=== PATIENT | female | born 1940 | race Caucasian/White ===

== ENCOUNTER 2019-06-04 21:21 | Inpatient (IN) | payer MEDICARE, OTHER ==
[~2019-06-04] VITALS: Ht 172.7 cm; Wt 52.8 kg
[~2019-06-04 21:21] MED LIST: DILT360C2 PO; ROSU20TA28 PO; VALS160T27 PO
--- NOTE | 2019-06-04 21:39 | PHYS DOC ---
Past Medical History Past Medical History: COPD, High Cholesterol, Hypertension, Other Additional Past Medical Histor: BILATERAL FEM POP BYPASS,HEART MURMUR Past Surgical History: Appendectomy, Cholecystectomy, Hysterectomy, Other Additional Past Surgical Histo: HEART CATH Alcohol Use: Occasionally Drug Use: None Adult General HPI HPI Patient is a 79 year old female who presents with at a nursing facility the nurse saw blood in this patient's stool but not an actual toilet water. This happened 1 hour ago. Patient states that today she's been having diarrhea at that she hasn't had before. States she's had lower abdominal pain but with palpation only. Patient states that she has no pain, abdominal pain, nausea, vomiting, fevers, recent illness, cough, shortness of air, chest pain, numbness or tingling, dizziness, headache, visual changes, weakness. Review of Systems Review of Systems GI: Denies abdominal pain, nausea, vomiting. +bloody stools or +diarrhea [] All other systems were reviewed and found to be within normal limits, except as documented in this note. Current Medications Current Medications Current Medications Medications (Trade) Dose Ordered Sig/Bryan Start Time Stop Time Status Last Admin Dose Admin Info (CONTRAST GIVEN -- Rx MONITORING) 1 each PRN DAILY PRN 06/04/19 22:00 06/06/19 21:59 Iohexol (Omnipaque 240 Mg/ml) 50 ml 1X ONCE 06/04/19 22:00 06/04/19 22:01 DC Iohexol (Omnipaque 300 Mg/ml) 100 ml 1X ONCE 06/04/19 22:00 06/04/19 22:01 DC Sodium Chloride 1,000 ml @ 1,000 mls/hr 1X ONCE 06/04/19 22:30 06/04/19 23:29 DC 06/04/19 23:23 1,000 MLS/HR Allergies Allergies Allergies Coded Allergies Type Severity Reaction Last Updated Verified No Known Drug Allergies 11/12/18 No Physical Exam Physical Exam Constitutional: Well developed, well nourished, no acute distress, non-toxic appearance. [] HENT: Normocephalic, atraumatic, bilateral external ears normal, oropharynx moist, no oral exudates, nose normal. [] Eyes: PERRLA, EOMI, conjunctiva normal, no discharge. [] Neck: Normal range of motion, no tenderness, supple, no stridor. [] Cardiovascular:Heart rate regular rhythm, no murmur [] Lungs & Thorax: Bilateral breath sounds clear to auscultation [] Abdomen: Bowel sounds normal, soft, Low Mid and LLQ tenderness, no masses, no pulsatile masses. Outer hemorrhoids around rectum seen that are not thrombosed and not draining or bleeding.[] Skin: Warm, dry, no erythema, no rash. [] Back: No tenderness, no CVA tenderness. [] Extremities: No tenderness, no cyanosis, no clubbing, ROM intact, no edema. [] Neurologic: Alert and oriented X 3, normal motor function, normal sensory function, no focal deficits noted. [] Psychologic: Affect normal, judgement normal, mood normal. [] Current Patient Data Vital Signs Vital Signs Date Time Temp Pulse Resp B/P (MAP) Pulse Ox O2 Delivery O2 Flow Rate FiO2 06/04/19 21:21 97.5 87 18 143/53 (83) 94 Nasal Cannula 2.0 97.5 Lab Values Laboratory Tests Test 06/04/19 21:34 06/04/19 22:17 Stool Occult Blood Positive (NEG) White Blood Count 7.8 x10^3/uL (4.0-11.0) Red Blood Count 2.56 x10^6/uL (3.50-5.40) L Hemoglobin 8.1 g/dL (12.0-15.5) L Hematocrit 24.4 % (36.0-47.0) L Mean Corpuscular Volume 95 fL (79-100) Mean Corpuscular Hemoglobin 32 pg (25-35) Mean Corpuscular Hemoglobin Concent 33 g/dL (31-37) Red Cell Distribution Width 15.0 % (11.5-14.5) H Platelet Count 357 x10^3/uL (140-400) Neutrophils (%) (Auto) 85 % (31-73) H Lymphocytes (%) (Auto) 7 % (24-48) L Monocytes (%) (Auto) 6 % (0-9) Eosinophils (%) (Auto) 1 % (0-3) Basophils (%) (Auto) 1 % (0-3) Neutrophils # (Auto) 6.7 x10^3/uL (1.8-7.7) Lymphocytes # (Auto) 0.6 x10^3/uL (1.0-4.8) L Monocytes # (Auto) 0.5 x10^3/uL (0.0-1.1) Eosinophils # (Auto) 0.1 x10^3/uL (0.0-0.7) Basophils # (Auto) 0.1 x10^3/uL (0.0-0.2) Segmented Neutrophils % 92 % (35-66) H Band Neutrophils % 1 % (0-9) Lymphocytes % 4 % (24-48) L Monocytes % 3 % (0-10) Platelet Estimate Adequate (ADEQUATE) Hypochromasia Mod Anisocytosis Slight Prothrombin Time 14.5 SEC (11.7-14.0) H Prothrombin Time INR 1.2 (0.8-1.1) H Sodium Level 137 mmol/L (136-145) Potassium Level 4.5 mmol/L (3.5-5.1) Chloride Level 103 mmol/L (98-107) Carbon Dioxide Level 29 mmol/L (21-32) Anion Gap 5 (6-14) L Blood Urea Nitrogen 40 mg/dL (7-20) H Creatinine 1.3 mg/dL (0.6-1.0) H Estimated GFR (Cockcroft-Gault) 39.5 BUN/Creatinine Ratio 31 (6-20) H Glucose Level 116 mg/dL (70-99) H Calcium Level 9.3 mg/dL (8.5-10.1) Total Bilirubin 0.2 mg/dL (0.2-1.0) Aspartate Amino Transferase (AST) 22 U/L (15-37) Alanine Aminotransferase (ALT) 12 U/L (14-59) L Alkaline Phosphatase 97 U/L (46-116) Troponin I Quantitative 0.042 ng/mL (0.000-0.055) Total Protein 6.8 g/dL (6.4-8.2) Albumin 2.9 g/dL (3.4-5.0) L Albumin/Globulin Ratio 0.7 (1.0-1.7) L Laboratory Tests 06/04/19 22:17 Laboratory Tests 06/04/19 22:17 EKG EKG Sinus Rhythm and no STEMI Interpretation Time: [address] Radiology/Procedures Radiology/Procedures [] Impressions: [facility] [address] [place] [address] IMAGING REPORT Signed PATIENT: MIRELLA SAAB ACCOUNT: [id number] : 1940 LOCATION: ER AGE: 79 SEX: F EXAM STATUS: REG ER ORD. PHYSICIAN: BOAZ BARAKAT APRN REASON: coarse breath sounds PROCEDURE: PORTABLE CHEST 1V Exam: Chest one view INDICATION: Coarse breath sounds TECHNIQUE: Frontal view of the chest Comparisons: 11/12/2018 FINDINGS: The cardiomediastinal silhouette and pulmonary vessels are within normal limits. There is a small left pleural effusion with mild adjacent airspace disease. IMPRESSION: Small left pleural effusion with adjacent airspace disease, likely atelectasis. Superimposed infectious process is difficult to exclude. Electronically signed by: Olive Viera MD (06/04/2019 10:09 PM) [facility] DICTATED and SIGNED BY: OLIVE VIERA MD DATE: 06/04/192208 [facility] [address] [place] [address] IMAGING REPORT Signed PATIENT: MIRELLA SAAB ACCOUNT: [id number] : 1940 LOCATION: ER AGE: 79 SEX: F EXAM STATUS: REG ER ORD. PHYSICIAN: BOAZ BARAKAT APRN REASON: rectal bleeding; ; lower abd pain x tonight hx: diverticulitis PROCEDURE: CT ABD PELV W/ORAL&IV CONTRAST EXAM: CT Abdomen and Pelvis without IV contrast CLINICAL HISTORY: Rectal bleeding, diverticulitis. COMPARISON: none TECHNIQUE: Helical CT of the abdomen and pelvis without intravenous contrast. Axial, coronal and sagittal reformatted images were generated. PQRS compliance statement - One or more of the following individualized dose reduction techniques were utilized for this study: 1. Automated exposure control 2. Adjustment of the mA and/or kV according to patient size 3. Use of iterative reconstruction technique FINDINGS: Lack of intravenous contrast limits evaluation of solid organs, vasculature, and lymph nodes. Lower chest: Small left pleural effusion. Dependent opacities left lower lobe and lingula likely atelectasis. Mild emphysematous changes are seen with bronchiectasis. Coronary artery calcifications are seen. Abdomen and Pelvis: Subcentimeter hypodense right hepatic lobe lesion is too small to accurately characterize. Cholecystectomy clips are seen. No biliary duct dilatation. Pancreas is borderline atrophic but otherwise unremarkable. Spleen is normal in appearance. Adrenal glands are unremarkable. Left kidney is atrophic. Subcentimeter hypodense left renal lesions are too small to accurately characterize. No renal tract calculus. Bladder is unremarkable. Changes of aortobiiliac stent graft are seen. Abdominal aortic aneurysm is seen within the aneurysm sac measuring 3.4 x 3.9 cm. Moderate colonic stool content is seen. No bowel obstruction. Extensive colonic diverticulosis is seen with flocculated barium within the diverticula resulting in associated streak artifact, limiting evaluation. Within these constraints no CT evidence for acute diverticulitis. Mild eccentric thickening of the rectal wall. No abdominal or pelvic lymphadenopathy. No abdominal or pelvic ascites. A few mildly prominent abdominal and pelvic retroperitoneal and mesenteric lymph nodes are seen, not enlarged by size criteria. No abdominal or pelvic ascites. Bones: Marked osteopenia. L3 and L4 compression fractures, age indeterminate. IMPRESSION: 1. Mild eccentric thickening of the rectal wall. Correlated with clinical examination and colonoscopy if not recently performed. 2. Extensive colonic diverticulosis without CT evidence for acute diverticulitis, although evaluation is limited given flocculated barium. 3. Marked osteopenia. L3 and L4 compression fractures are age indeterminate. 4. Abdominal aortic aneurysm with aortobiiliac stent graft, measures 3.4 x 3.9 cm. No evidence for rupture. 5. Small left pleural effusion with associated dependent opacities, likely atelectasis. Electronically signed by: Talha Ravi MD (06/04/2019 11:41 PM) [facility] DICTATED and SIGNED BY: TALHA RAVI MD DATE: 06/04/19 2612 Course & Med Decision Making Course & Med Decision Making Abdomen is soft but there is some tenderness to low mid and left abdomen. No extremity edema. Lungs are coarse in bilateral upper lobes but diminished in lower lobes. Patient wears 2 L of oxygen at all times. She does have COPD. She states she does not feel any more shortness of air than usual. She denies any fevers or coughing up any mucus. Patient was at [facility] [place] 2 weeks ago for the GI bleed. Family did not want to go back down there because he stated it was too far and [place] was closer to home. Patient is on Cymbalta, albuterol, aspirin 81 mg, digitize exam. She does have a history of COPD, hypertension, diverticulosis, CAD, high cholesterol, heart bypass. Skin is pale but warm and dry. PERRLA. Alert and oriented. Speaks in full clear sentences. Follows all commands appropriately. Hemoglobin is 8.1 and the only blood work we have is from November 2018 and her hemoglobin was 12 at that time. In November 2018 patient's BUN was 19 and now it is 40, creatinine pain was 1.0 and now it is 1.3. It is unclear what her blood work was from [facility] 2 weeks ago when she was in the hospital for a GI bleed. I have gone over this patient findings and plan of care with Dr Friend. Patient is admitted to Dr Johnston. CT ABD PELV shows IMPRESSION: 1. Mild eccentric thickening of the rectal wall. Correlated with clinical examination and colonoscopy if not recently performed. 2. Extensive colonic diverticulosis without CT evidence for acute diverticulitis, although evaluation is limited given flocculated barium. 3. Marked osteopenia. L3 and L4 compression fractures are age indeterminate. 4. Abdominal aortic aneurysm with aortobiiliac stent graft, measures 3.4 x 3.9 cm. No evidence for rupture. 5. Small left pleural effusion with associated dependent opacities, likely atelectasis. Rectal Exam: Normal tone, No mass, Positive control Stool: Brown Guaiac: Positive Dragon Disclaimer Dragon Disclaimer This electronic medical record was generated, in whole or in part, using a voice recognition dictation system. Departure Departure Impression: Primary Impression: Rectal bleeding Additional Impression: Acute kidney injury Disposition: ADMITTED INPATIENT Admitting Physician: HIMS Condition: STABLE Referrals: NO PCP (PCP) Problem Qualifiers BOAZ BARAKAT DOCK OPERATOR Jun 04, 2019 21:39
[2019-06-04 21:50] LABS: FECAL OB PT POSITIVE (NEG)
[2019-06-04] MEDS ORDERED: CONTRAST GIVEN. MC PRN (22:00)
[2019-06-04] MEDS ORDERED: IOHEXOL 300 MG/ML 100ML VIAL. IV ONE (22:00)
[2019-06-04] MEDS ORDERED: IOHEXOL 240 MG/ML 50ML VIAL. PO ONE (22:00)
--- NOTE | 2019-06-04 22:12 | RAD ---
Exam: Chest one view INDICATION: Coarse breath sounds TECHNIQUE: Frontal view of the chest Comparisons: 11/12/2018 FINDINGS: The cardiomediastinal silhouette and pulmonary vessels are within normal limits. There is a small left pleural effusion with mild adjacent airspace disease. IMPRESSION: Small left pleural effusion with adjacent airspace disease, likely atelectasis. Superimposed infectious process is difficult to exclude. Electronically signed by: Olive Segura MD (06/04/2019 10:09 PM) [facility]
[2019-06-04 22:24] LABS: BASO # 0.1 x10^3/uL (0.0-0.2); BASO % 1 % (0-3); EOS # 0.1 x10^3/uL (0.0-0.7); EOS % 1 % (0-3); HEMATOCRIT 24.4 % (36.0-47.0); HEMOGLOBIN 8.1 g/dL (12.0-15.5); LYMPH # 0.6 x10^3/uL (1.0-4.8); LYMPH % 7 % (24-48); MEAN CORPUSCULAR HEMOGLOBIN 32 pg (25-35); MEAN CORPUSCULAR HGB CONC 33 g/dL (31-37); MEAN CORPUSCULAR VOLUME 95 fL (79-100); MONO # 0.5 x10^3/uL (0.0-1.1); MONO % 6 % (0-9); NEUT # 6.7 x10^3/uL (1.8-7.7); NEUT % 85 % (31-73); PLATELET COUNT 357 x10^3/uL (140-400); RED BLOOD COUNT 2.56 x10^6/uL (3.50-5.40); WHITE BLOOD COUNT 7.8 x10^3/uL (4.0-11.0)
[2019-06-04] MEDS ORDERED: IV NORMAL SALINE 1000ML BAG 1,000 ML IV ONE (22:30)
[2019-06-04 22:32] LABS: PROTHROMBIN TIME PATIENT 14.5 SEC (11.7-14.0)
[2019-06-04 22:38] LABS: CALCIUM 9.3 mg/dL (8.5-10.1); CREATININE 1.3 mg/dL (0.6-1.0); GFR 39.5; POTASSIUM 4.5 mmol/L (3.5-5.1)
[2019-06-04 22:43] LABS: ALBUMIN 2.9 g/dL (3.4-5.0); ALBUMIN/GLOBULIN RATIO 0.7 (1.0-1.7); TOTAL BILIRUBIN 0.2 mg/dL (0.2-1.0); TOTAL PROTEIN 6.8 g/dL (6.4-8.2)
[2019-06-04 22:46] LABS: % BANDS 1 % (0-9); % LYMPHS 4 % (24-48); % MONOS 3 % (0-10); % SEGS 92 % (35-66)
[2019-06-04 22:47] LABS: ANISOCYTOSIS SLIGHT; HYPOCHROMIA MOD; PLT ESTIMATE ADEQUATE (ADEQUATE)
--- NOTE | 2019-06-04 23:44 | RAD ---
EXAM: CT Abdomen and Pelvis without IV contrast CLINICAL HISTORY: Rectal bleeding, diverticulitis. COMPARISON: none TECHNIQUE: Helical CT of the abdomen and pelvis without intravenous contrast. Axial, coronal and sagittal reformatted images were generated. PQRS compliance statement - One or more of the following individualized dose reduction techniques were utilized for this study: 1. Automated exposure control 2. Adjustment of the mA and/or kV according to patient size 3. Use of iterative reconstruction technique FINDINGS: Lack of intravenous contrast limits evaluation of solid organs, vasculature, and lymph nodes. Lower chest: Small left pleural effusion. Dependent opacities left lower lobe and lingula likely atelectasis. Mild emphysematous changes are seen with bronchiectasis. Coronary artery calcifications are seen. Abdomen and Pelvis: Subcentimeter hypodense right hepatic lobe lesion is too small to accurately characterize. Cholecystectomy clips are seen. No biliary duct dilatation. Pancreas is borderline atrophic but otherwise unremarkable. Spleen is normal in appearance. Adrenal glands are unremarkable. Left kidney is atrophic. Subcentimeter hypodense left renal lesions are too small to accurately characterize. No renal tract calculus. Bladder is unremarkable. Changes of aortobiiliac stent graft are seen. Abdominal aortic aneurysm is seen within the aneurysm sac measuring 3.4 x 3.9 cm. Moderate colonic stool content is seen. No bowel obstruction. Extensive colonic diverticulosis is seen with flocculated barium within the diverticula resulting in associated streak artifact, limiting evaluation. Within these constraints no CT evidence for acute diverticulitis. Mild eccentric thickening of the rectal wall. No abdominal or pelvic lymphadenopathy. No abdominal or pelvic ascites. A few mildly prominent abdominal and pelvic retroperitoneal and mesenteric lymph nodes are seen, not enlarged by size criteria. No abdominal or pelvic ascites. Bones: Marked osteopenia. L3 and L4 compression fractures, age indeterminate. IMPRESSION: 1. Mild eccentric thickening of the rectal wall. Correlated with clinical examination and colonoscopy if not recently performed. 2. Extensive colonic diverticulosis without CT evidence for acute diverticulitis, although evaluation is limited given flocculated barium. 3. Marked osteopenia. L3 and L4 compression fractures are age indeterminate. 4. Abdominal aortic aneurysm with aortobiiliac stent graft, measures 3.4 x 3.9 cm. No evidence for rupture. 5. Small left pleural effusion with associated dependent opacities, likely atelectasis. Electronically signed by: Talha Tafoya MD (06/04/2019 11:41 PM) [facility]
[2019-06-05] VITALS (15 sets, daily range): BP systolic 96–153; BP diastolic 46–71
[2019-06-05] MEDS ORDERED: IV NORMAL SALINE 1000ML BAG 1,000 ML IV ONE (00:15)
[2019-06-05] MEDS ORDERED: fentaNYL PF VIAL 100 MCG/2 ML VIAL IV PRN (00:15)
[2019-06-05] MEDS ORDERED: ONDANSETRON PF 4 MG/2 ML VIAL. IV PRN ×2 (00:15→07:30)
[2019-06-05] MEDS ORDERED: DULO20CA PO (05:37)
[2019-06-05] MEDS ORDERED: ACETAMINOPHEN 325 MG TABLET. PO PRN (07:30)
--- NOTE | 2019-06-05 07:42 | PDOC1 ---
History and Physical Date of Admission Date of Admission DATE: 06/05/19 TIME: 07:30 Identification/Chief Complaint Chief Complaint Blood in stool Source Source: Patient History of Present Illness History of Present Illness Ms Sanz is a 79yo F w/ PMHx COPD, High Cholesterol, Hypertension, AAA, PAD s/p fem pop bypass, aortic stenosis, pulmonary hypertension who presents from nursing facility where nurse saw blood in patient's stool 1 hour prior to ED presentation. Patient states that today she's been having diarrhea. No abdominal pain, nausea, vomiting, fevers, recent illness, cough, shortness of air, chest pain, numbness or tingling, dizziness, headache, visual changes, weakness. She is UTD on vaccines. Her only pain is upon abdominal palpation. Labs: Hb 8.1 (was 12.2 recently), Na 137, K 4.5, BUN 40, Cr 1.3, Albumin 2.9, INR 1.2, Troponin 0.042, Occult blood positive Past Medical History Cardiovascular: Other Pulmonary: No pertinent hx Heme/Onc: No pertinent hx Renal/: No pertinent hx Endocrine: No pertinent hx Social History ALCOHOL: none Drugs: None Current Problem List Problem List Problems Medical Problems: (1) Acute kidney injury Status: Acute (2) Rectal bleeding Status: Acute Current Medications Current Medications Current Medications Iohexol (Omnipaque 300 Mg/ml) 100 ml 1X ONCE IV ; Start 06/04/19 at 22:00; Stop 06/04/19 at 22:01; Status DC Iohexol (Omnipaque 240 Mg/ml) 50 ml 1X ONCE PO Last administered on 06/04/19at 23:05; Start 06/04/19 at 22:00; Stop 06/04/19 at 22:01; Status DC Info (CONTRAST GIVEN -- Rx MONITORING) 1 each PRN DAILY PRN MC SEE COMMENTS; Start 06/04/19 at 22:00; Stop 06/06/19 at 21:59 Sodium Chloride 1,000 ml @ 1,000 mls/hr 1X ONCE IV Last administered on 06/04/19at 23:23; Start 06/04/19 at 22:30; Stop 06/04/19 at 23:29; Status DC Ondansetron HCl (Zofran) 4 mg PRN Q8HRS PRN IV NAUSEA/VOMITING; Start 06/05/19 at 00:15; Stop 06/06/19 at 00:14 Fentanyl Citrate (Fentanyl 2ml Vial) 50 mcg PRN Q1HR PRN IV PAIN; Start 06/05/19 at 00:15; Stop 06/06/19 at 00:14 Sodium Chloride 1,000 ml @ 100 mls/hr 1X ONCE IV Last administered on 06/05/19at 00:15; Start 06/05/19 at 00:15; Stop 06/05/19 at 10:14 Active Scripts Active Reported Cymbalta (Duloxetine Hcl) 20 Mg Capsule.dr 40 Mg PO DAILY Rosuvastatin Calcium 20 Mg Tablet 20 Mg PO DAILY Valsartan 160 Mg Tablet 160 Mg PO DAILY Diltiazem Xt (Diltiazem Hcl) 360 Mg Capsule.er 360 Mg PO DAILY Allergies Allergies: Coded Allergies: No Known Drug Allergies (Unverified , 11/12/18) ROS General: YES: Fatigue, Malaise; No: Chills, Night Sweats, Appetite, Other PSYCHOLOGICAL ROS: YES: Disorientation; No: Anxiety, Behavioral Disorder, Concentration difficultie, Decreased libido, Depression, Hallucinations, Hostility, Irritablity, Memory difficulties, Mood Swings, Obsessive thoughts, Physical abuse, Sexual abuse, Sleep disturbances, Suicidal ideation, Other Eyes: No Blurry vision, No Decreased vision, No Double vision, No Dry eyes, No Excessive tearing, No Eye Pain, No Itchy Eyes, No Loss of vision, No Photophobia, No Scotomata, No Uses contacts, No Uses glasses, No Other HEENT: No: Heacaches, Visual Changes, Hearing change, Nasal congestion, Nasal discharge, Oral lesions, Sinus pain, Sore Throat, Epistaxis, Sneezing, Snoring, Tinnitus, Vertigo, Vocal changes, Other ALLERGY AND IMMUNOLOGY: No: Hives, Insect Bite Sensitivity, Itchy/Watery Eyes, Nasal Congestion, Post Nasal Drip, Seasonal Allergies, Other Hematological and Lymphatic: No: Bleeding Problems, Blood Clots, Blood Transfusions, Brusing, Night Sweats, Pallor, Swollen Lymph Nodes, Other ENDOCRINE: No: Breast Changes, Galactorrhea, Hair Pattern Changes, Hot Flashes, Malaise/lethargy, Mood Swings, Palpitations, Polydipsia/polyuria, Skin Changes, Temperature Intolerance, Unexpected Weight Changes, Other Breast: No New/Changing Breast Lumps, No Nipple changes, No Nipple discharge, No Other Respiratory: No: Cough, Hemoptysis, Orthopnea, Pleuritic Pain, Shortness of breath, SOB with excertion, Sputum Changes, Stridor, Tachypnea, Wheezing, Other Cardiovascular: No Chest Pain, No Palpitations, No Orthopnea, No Paroxysmal Noc. Dyspnea, No Edema, No Lt Headedness, No Other Gastrointestinal: Yes Abdominal Pain, Yes Diarrhea; No Nausea, No Vomiting, No Constipation, No Melena, No Hematochezia, No Other Genitourinary: No Dysuria, No Frequency, No Incontinence, No Hematuria, No Retention, No Discharge, No Urgency, No Pain, No Flank Pain, No Other, No , No , No , No , No , No , No Musculoskeletal: No Gait Disturbance, No Joint Pain, No Joint Stiffness, No Joint Swelling, No Muscle Pain, No Muscular Weakness, No Pain In:, No Swelling In:, No Other Neurological: No Behavorial Changes, No Bowel/Bladder ControlChng, No Confusion, No Dizziness, No Gait Disturbance, No Headaches, No Impaired Coord/balance, No Memory Loss, No Numbness/Tingling, No Seizures, No Speech Problems, No Tremors, No Visual Changes, No Weakness, No Other Skin: No Dry Skin, No Eczema, No Hair Changes, No Lumps, No Mole Changes, No Mottling, No Nail Changes, No Pruritus, No Rash, No Skin Lesion Changes, No Other, No Acne Physical Exam General: Alert, Cooperative, No acute distress HEENT: Atraumatic, PERRLA, EOMI, Mucous membr. moist/pink Lungs: Clear to auscultation, Normal air movement Heart: S1S2, RRR, no thrills, murmurs (3/6 MARY) Abdomen: Normal bowel sounds, Soft, No hepatosplenomegaly, No masses, Other (RLQ tender) Extremities: No clubbing, No cyanosis, No edema, Normal pulses, No tenderness/swelling Skin: No rashes, No breakdown, No significant lesion Neuro: Normal speech, Strength at 5/5 X4 ext, Normal tone, Sensation intact, Cranial nerves 3-12 NL, Reflexes 2+ Psych/Mental Status: Mental status NL, Mood NL Vitals Vitals Vital Signs Date Time Temp Pulse Resp B/P (MAP) Pulse Ox O2 Delivery O2 Flow Rate FiO2 06/05/19 03:35 16 Nasal Cannula 2.0 06/05/19 01:55 98.0 102 153/68 (96) 93 98.0 Labs Labs Laboratory Tests Test 06/04/19 21:34 06/04/19 22:17 Stool Occult Blood Positive (NEG) White Blood Count 7.8 x10^3/uL (4.0-11.0) Red Blood Count 2.56 x10^6/uL (3.50-5.40) Hemoglobin 8.1 g/dL (12.0-15.5) Hematocrit 24.4 % (36.0-47.0) Mean Corpuscular Volume 95 fL (79-100) Mean Corpuscular Hemoglobin 32 pg (25-35) Mean Corpuscular Hemoglobin Concent 33 g/dL (31-37) Red Cell Distribution Width 15.0 % (11.5-14.5) Platelet Count 357 x10^3/uL (140-400) Neutrophils (%) (Auto) 85 % (31-73) Lymphocytes (%) (Auto) 7 % (24-48) Monocytes (%) (Auto) 6 % (0-9) Eosinophils (%) (Auto) 1 % (0-3) Basophils (%) (Auto) 1 % (0-3) Neutrophils # (Auto) 6.7 x10^3/uL (1.8-7.7) Lymphocytes # (Auto) 0.6 x10^3/uL (1.0-4.8) Monocytes # (Auto) 0.5 x10^3/uL (0.0-1.1) Eosinophils # (Auto) 0.1 x10^3/uL (0.0-0.7) Basophils # (Auto) 0.1 x10^3/uL (0.0-0.2) Segmented Neutrophils % 92 % (35-66) Band Neutrophils % 1 % (0-9) Lymphocytes % 4 % (24-48) Monocytes % 3 % (0-10) Platelet Estimate Adequate (ADEQUATE) Hypochromasia Mod Anisocytosis Slight Prothrombin Time 14.5 SEC (11.7-14.0) Prothromb Time International Ratio 1.2 (0.8-1.1) Sodium Level 137 mmol/L (136-145) Potassium Level 4.5 mmol/L (3.5-5.1) Chloride Level 103 mmol/L (98-107) Carbon Dioxide Level 29 mmol/L (21-32) Anion Gap 5 (6-14) Blood Urea Nitrogen 40 mg/dL (7-20) Creatinine 1.3 mg/dL (0.6-1.0) Estimated GFR (Cockcroft-Gault) 39.5 BUN/Creatinine Ratio 31 (6-20) Glucose Level 116 mg/dL (70-99) Calcium Level 9.3 mg/dL (8.5-10.1) Total Bilirubin 0.2 mg/dL (0.2-1.0) Aspartate Amino Transf (AST/SGOT) 22 U/L (15-37) Alanine Aminotransferase (ALT/SGPT) 12 U/L (14-59) Alkaline Phosphatase 97 U/L (46-116) Troponin I Quantitative 0.042 ng/mL (0.000-0.055) Total Protein 6.8 g/dL (6.4-8.2) Albumin 2.9 g/dL (3.4-5.0) Albumin/Globulin Ratio 0.7 (1.0-1.7) Laboratory Tests Test 06/04/19 21:34 06/04/19 22:17 Stool Occult Blood Positive (NEG) White Blood Count 7.8 x10^3/uL (4.0-11.0) Red Blood Count 2.56 x10^6/uL (3.50-5.40) Hemoglobin 8.1 g/dL (12.0-15.5) Hematocrit 24.4 % (36.0-47.0) Mean Corpuscular Volume 95 fL (79-100) Mean Corpuscular Hemoglobin 32 pg (25-35) Mean Corpuscular Hemoglobin Concent 33 g/dL (31-37) Red Cell Distribution Width 15.0 % (11.5-14.5) Platelet Count 357 x10^3/uL (140-400) Neutrophils (%) (Auto) 85 % (31-73) Lymphocytes (%) (Auto) 7 % (24-48) Monocytes (%) (Auto) 6 % (0-9) Eosinophils (%) (Auto) 1 % (0-3) Basophils (%) (Auto) 1 % (0-3) Neutrophils # (Auto) 6.7 x10^3/uL (1.8-7.7) Lymphocytes # (Auto) 0.6 x10^3/uL (1.0-4.8) Monocytes # (Auto) 0.5 x10^3/uL (0.0-1.1) Eosinophils # (Auto) 0.1 x10^3/uL (0.0-0.7) Basophils # (Auto) 0.1 x10^3/uL (0.0-0.2) Segmented Neutrophils % 92 % (35-66) Band Neutrophils % 1 % (0-9) Lymphocytes % 4 % (24-48) Monocytes % 3 % (0-10) Platelet Estimate Adequate (ADEQUATE) Hypochromasia Mod Anisocytosis Slight Prothrombin Time 14.5 SEC (11.7-14.0) Prothromb Time International Ratio 1.2 (0.8-1.1) Sodium Level 137 mmol/L (136-145) Potassium Level 4.5 mmol/L (3.5-5.1) Chloride Level 103 mmol/L (98-107) Carbon Dioxide Level 29 mmol/L (21-32) Anion Gap 5 (6-14) Blood Urea Nitrogen 40 mg/dL (7-20) Creatinine 1.3 mg/dL (0.6-1.0) Estimated GFR (Cockcroft-Gault) 39.5 BUN/Creatinine Ratio 31 (6-20) Glucose Level 116 mg/dL (70-99) Calcium Level 9.3 mg/dL (8.5-10.1) Total Bilirubin 0.2 mg/dL (0.2-1.0) Aspartate Amino Transf (AST/SGOT) 22 U/L (15-37) Alanine Aminotransferase (ALT/SGPT) 12 U/L (14-59) Alkaline Phosphatase 97 U/L (46-116) Troponin I Quantitative 0.042 ng/mL (0.000-0.055) Total Protein 6.8 g/dL (6.4-8.2) Albumin 2.9 g/dL (3.4-5.0) Albumin/Globulin Ratio 0.7 (1.0-1.7) Images Images Lower chest: Small left pleural effusion. Dependent opacities left lower lobe and lingula likely atelectasis. Mild emphysematous changes are seen with bronchiectasis. Coronary artery calcifications are seen. Abdomen and Pelvis: Subcentimeter hypodense right hepatic lobe lesion is too small to accurately characterize. Cholecystectomy clips are seen. No biliary duct dilatation. Pancreas is borderline atrophic but otherwise unremarkable. Spleen is normal in appearance. Adrenal glands are unremarkable. Left kidney is atrophic. Subcentimeter hypodense left renal lesions are too small to accurately characterize. No renal tract calculus. Bladder is unremarkable. Changes of aortobiiliac stent graft are seen. Abdominal aortic aneurysm is seen within the aneurysm sac measuring 3.4 x 3.9 cm. Moderate colonic stool content is seen. No bowel obstruction. Extensive colonic diverticulosis is seen with flocculated barium within the diverticula resulting in associated streak artifact, limiting evaluation. Within these constraints no CT evidence for acute diverticulitis. Mild eccentric thickening of the rectal wall. No abdominal or pelvic lymphadenopathy. No abdominal or pelvic ascites. A few mildly prominent abdominal and pelvic retroperitoneal and mesenteric lymph nodes are seen, not enlarged by size criteria. No abdominal or pelvic ascites. Bones: Marked osteopenia. L3 and L4 compression fractures, age indeterminate. IMPRESSION: 1. Mild eccentric thickening of the rectal wall. Correlated with clinical examination and colonoscopy if not recently performed. 2. Extensive colonic diverticulosis without CT evidence for acute diverticulitis, although evaluation is limited given flocculated barium. 3. Marked osteopenia. L3 and L4 compression fractures are age indeterminate. 4. Abdominal aortic aneurysm with aortobiiliac stent graft, measures 3.4 x 3.9 cm. No evidence for rupture. 5. Small left pleural effusion with associated dependent opacities, likely atelectasis. VTE Prophylaxis Ordered VTE Prophylaxis Devices: Yes VTE Pharmacological Prophylaxi: Contraindicated Assessment/Plan Assessment/Plan A/P: Acute blood loss anemia - telemetry, type and screen. Consult GI. Transfuse for active bleeding if Hb < 7. Blood in stool - likely diverticular, however her dark blood in stool and elevated BUN raise concern for UGIB. D/w GI for tagged RBC scan today CHF, acute diastolic - likely 2/2 blood loss Aortic stenosis COPD - currently stable SIRS - due to blood loss, no clear sign of infection High Cholesterol - cont statin Hypertension - will watch BP closely, hold ARB for HOME HOME - vasomotor nephropathy from volume depletion. Will hold ARB, hydrate AAA and PAD s/p fem pop bypass Pulmonary hypertension - with apparent cor pulmonale, on O2 currently Weakness and debility, PT and OT Underweight, BMI 15 Severe protein calorie malnutrition - consult nutrition, add supplements, cognitive decline, MILD FEN - Cardiac diet PPX - SCDs/PPI FULL CODE Dispo - inpatient for active GI bleeding likely 2 midnights SAMY GAFFNEY MD Jun 05, 2019 07:42
[2019-06-05 09:52] LABS: CALCIUM 8.2 mg/dL (8.5-10.1); CREATININE 0.9 mg/dL (0.6-1.0); GFR 60.4; POTASSIUM 4.4 mmol/L (3.5-5.1)
[2019-06-05 09:54] LABS: BASO # 0.1 x10^3/uL (0.0-0.2); BASO % 1 % (0-3); EOS # 0.1 x10^3/uL (0.0-0.7); EOS % 1 % (0-3); LYMPH # 0.8 x10^3/uL (1.0-4.8); LYMPH % 17 % (24-48); MEAN CORPUSCULAR HEMOGLOBIN 31 pg (25-35); MEAN CORPUSCULAR HGB CONC 33 g/dL (31-37); MEAN CORPUSCULAR VOLUME 94 fL (79-100); MONO # 0.4 x10^3/uL (0.0-1.1); MONO % 9 % (0-9); NEUT # 3.5 x10^3/uL (1.8-7.7); NEUT % 72 % (31-73); PLATELET COUNT 316 x10^3/uL (140-400); RED BLOOD COUNT 2.17 x10^6/uL (3.50-5.40); WHITE BLOOD COUNT 4.9 x10^3/uL (4.0-11.0)
[2019-06-05] MEDS: DULoxetine HCL 20 MG CAPSULE.DR PO SCH (10:11)
[2019-06-05 10:24] LABS: HEMOGLOBIN 6.6 g/dL (12.0-15.5)
[2019-06-05 10:25] LABS: HEMATOCRIT 20.4 % (36.0-47.0)
--- NOTE | 2019-06-05 11:27 | PDOC2 ---
CONSULT Date of Consult Date of Consult DATE: 06/05/19 TIME: 11:27 Reason for Consult Reason for Consult: HOME Source Source: Chart review, Patient History of Present Illness Reason for Visit: Pt is a is a 79yo CF w/ PMHx COPD Hypertension, AAA, PAD s/p fem pop bypass, aortic stenosis, pulmonary hypertension who presents from nursing facility where nurse saw blood in patient's stool 1 hour prior to ED presentation. Patient states that today she's been having diarrhea at that she hasn't had before. States she's had lower abdominal pain but with palpation only. No nausea, vomiting, fevers, recent illness, cough, shortness of air, chest pain, dizziness,. Denies any urinary complaints, good uop. No use of NSAID's Past Medical History Cardiovascular: Other Pulmonary: No pertinent hx Heme/Onc: No pertinent hx Renal/: No pertinent hx Endocrine: No pertinent hx Family History Family History Non contributory Social History ALCOHOL: none Drugs: None Current Problem List Problem List Problems Medical Problems: (1) Acute kidney injury Status: Acute (2) Rectal bleeding Status: Acute Current Medications Current Medications Current Medications Iohexol (Omnipaque 300 Mg/ml) 100 ml 1X ONCE IV ; Start 06/04/19 at 22:00; Stop 06/04/19 at 22:01; Status DC Iohexol (Omnipaque 240 Mg/ml) 50 ml 1X ONCE PO Last administered on 06/04/19at 23:05; Start 06/04/19 at 22:00; Stop 06/04/19 at 22:01; Status DC Info (CONTRAST GIVEN -- Rx MONITORING) 1 each PRN DAILY PRN MC SEE COMMENTS; S tart 06/04/19 at 22:00; Stop 06/06/19 at 21:59 Sodium Chloride 1,000 ml @ 1,000 mls/hr 1X ONCE IV Last administered on 06/04/19at 23:23; Start 06/04/19 at 22:30; Stop 06/04/19 at 23:29; Status DC Ondansetron HCl (Zofran) 4 mg PRN Q8HRS PRN IV NAUSEA/VOMITING; Start 06/05/19 at 00:15; Stop 06/05/19 at 07:30; Status DC Fentanyl Citrate (Fentanyl 2ml Vial) 50 mcg PRN Q1HR PRN IV PAIN; Start 06/05/19 at 00:15; Stop 06/06/19 at 00:14 Sodium Chloride 1,000 ml @ 100 mls/hr 1X ONCE IV Last administered on at 00:15; Start 06/05/19 at 00:15; Stop 06/05/19 at 10:14; Status DC Ondansetron HCl (Zofran) 4 mg PRN Q4HRS PRN IV NAUSEA/VOMITING; Start 06/05/19 at 07:30 Duloxetine HCl (Cymbalta) 40 mg DAILY PO Last administered on 06/05/19at 10:11; Start 06/05/19 at 09:00 Diltiazem HCl (Cardizem 24hr Cd) 360 mg DAILY PO ; Start 06/05/19 at 09:00 Atorvastatin Calcium (Lipitor) 80 mg QHS PO ; Start 06/05/19 at 21:00 Acetaminophen (Tylenol) 650 mg PRN Q6HRS PRN PO pain/fever; Start 06/05/19 at 07:30 Active Scripts Active Reported Cymbalta (Duloxetine Hcl) 20 Mg Capsule.dr 40 Mg PO DAILY Rosuvastatin Calcium 20 Mg Tablet 20 Mg PO DAILY Valsartan 160 Mg Tablet 160 Mg PO DAILY Diltiazem Xt (Diltiazem Hcl) 360 Mg Capsule.er 360 Mg PO DAILY Allergies Allergies: Coded Allergies: No Known Drug Allergies (Unverified , 11/12/18) ROS Review of System Per HPI Physical Exam Physical Exam GEN: NAD HEEN:om MOIST NECK:supple CVS: RRR, Murmur +++ RESP: CTA, Non labored GI: Soft, NT : [NoCVA tenderness, [No Suprapubic Tenderness, No boo NEURO - grossly normal Derm- No rash Vital Signs Vital Signs Date Time Temp Pulse Resp B/P (MAP) Pulse Ox O2 Delivery O2 Flow Rate FiO2 06/05/19 08:00 Nasal Cannula 2.0 06/05/19 07:15 97.8 79 20 114/61 (78) 97 97.8 Assessment & Plan HMOE- Pre-renal/GI bleed Improving with IVF, E-Lytes stable, UA not done Holding ARB Ct scan- Left kidney is atrophic. Subcentimeter hypodense left renal lesions are too small to accurately characterize. No renal tract calculus. Bladder is unremarkable Supportive, Avoid nephrotoxins, Monitor Acute blood loss anemia - GI consulted Blood in stool - Per GI Aortic stenosis COPD - currently stable AAA and PAD s/p fem pop bypass Will sign off Labs Labs Laboratory Tests Test 06/04/19 21:34 06/04/19 22:17 06/05/19 08:45 Stool Occult Blood Positive (NEG) White Blood Count 7.8 x10^3/uL (4.0-11.0) 4.9 x10^3/uL (4.0-11.0) Red Blood Count 2.56 x10^6/uL (3.50-5.40) 2.17 x10^6/uL (3.50-5.40) Hemoglobin 8.1 g/dL (12.0-15.5) 6.6 g/dL (12.0-15.5) Hematocrit 24.4 % (36.0-47.0) 20.4 % (36.0-47.0) Mean Corpuscular Volume 95 fL (79-100) 94 fL (79-100) Mean Corpuscular Hemoglobin 32 pg (25-35) 31 pg (25-35) Mean Corpuscular Hemoglobin Concent 33 g/dL (31-37) 33 g/dL (31-37) Red Cell Distribution Width 15.0 % (11.5-14.5) 15.0 % (11.5-14.5) Platelet Count 357 x10^3/uL (140-400) 316 x10^3/uL (140-400) Neutrophils (%) (Auto) 85 % (31-73) 72 % (31-73) Lymphocytes (%) (Auto) 7 % (24-48) 17 % (24-48) Monocytes (%) (Auto) 6 % (0-9) 9 % (0-9) Eosinophils (%) (Auto) 1 % (0-3) 1 % (0-3) Basophils (%) (Auto) 1 % (0-3) 1 % (0-3) Neutrophils # (Auto) 6.7 x10^3/uL (1.8-7.7) 3.5 x10^3/uL (1.8-7.7) Lymphocytes # (Auto) 0.6 x10^3/uL (1.0-4.8) 0.8 x10^3/uL (1.0-4.8) Monocytes # (Auto) 0.5 x10^3/uL (0.0-1.1) 0.4 x10^3/uL (0.0-1.1) Eosinophils # (Auto) 0.1 x10^3/uL (0.0-0.7) 0.1 x10^3/uL (0.0-0.7) Basophils # (Auto) 0.1 x10^3/uL (0.0-0.2) 0.1 x10^3/uL (0.0-0.2) Segmented Neutrophils % 92 % (35-66) Band Neutrophils % 1 % (0-9) Lymphocytes % 4 % (24-48) Monocytes % 3 % (0-10) Platelet Estimate Adequate (ADEQUATE) Hypochromasia Mod Anisocytosis Slight Prothrombin Time 14.5 SEC (11.7-14.0) Prothromb Time International Ratio 1.2 (0.8-1.1) Sodium Level 137 mmol/L (136-145) 141 mmol/L (136-145) Potassium Level 4.5 mmol/L (3.5-5.1) 4.4 mmol/L (3.5-5.1) Chloride Level 103 mmol/L (98-107) 108 mmol/L (98-107) Carbon Dioxide Level 29 mmol/L (21-32) 27 mmol/L (21-32) Anion Gap 5 (6-14) 6 (6-14) Blood Urea Nitrogen 40 mg/dL (7-20) 34 mg/dL (7-20) Creatinine 1.3 mg/dL (0.6-1.0) 0.9 mg/dL (0.6-1.0) Estimated GFR (Cockcroft-Gault) 39.5 60.4 BUN/Creatinine Ratio 31 (6-20) Glucose Level 116 mg/dL (70-99) 96 mg/dL (70-99) Calcium Level 9.3 mg/dL (8.5-10.1) 8.2 mg/dL (8.5-10.1) Total Bilirubin 0.2 mg/dL (0.2-1.0) Aspartate Amino Transf (AST/SGOT) 22 U/L (15-37) Alanine Aminotransferase (ALT/SGPT) 12 U/L (14-59) Alkaline Phosphatase 97 U/L (46-116) Troponin I Quantitative 0.042 ng/mL (0.000-0.055) 0.048 ng/mL (0.000-0.055) Total Protein 6.8 g/dL (6.4-8.2) Albumin 2.9 g/dL (3.4-5.0) Albumin/Globulin Ratio 0.7 (1.0-1.7) Laboratory Tests Test 06/04/19 21:34 06/04/19 22:17 06/05/19 08:45 Stool Occult Blood Positive (NEG) White Blood Count 7.8 x10^3/uL (4.0-11.0) 4.9 x10^3/uL (4.0-11.0) Red Blood Count 2.56 x10^6/uL (3.50-5.40) 2.17 x10^6/uL (3.50-5.40) Hemoglobin 8.1 g/dL (12.0-15.5) 6.6 g/dL (12.0-15.5) Hematocrit 24.4 % (36.0-47.0) 20.4 % (36.0-47.0) Mean Corpuscular Volume 95 fL (79-100) 94 fL (79-100) Mean Corpuscular Hemoglobin 32 pg (25-35) 31 pg (25-35) Mean Corpuscular Hemoglobin Concent 33 g/dL (31-37) 33 g/dL (31-37) Red Cell Distribution Width 15.0 % (11.5-14.5) 15.0 % (11.5-14.5) Platelet Count 357 x10^3/uL (140-400) 316 x10^3/uL (140-400) Neutrophils (%) (Auto) 85 % (31-73) 72 % (31-73) Lymphocytes (%) (Auto) 7 % (24-48) 17 % (24-48) Monocytes (%) (Auto) 6 % (0-9) 9 % (0-9) Eosinophils (%) (Auto) 1 % (0-3) 1 % (0-3) Basophils (%) (Auto) 1 % (0-3) 1 % (0-3) Neutrophils # (Auto) 6.7 x10^3/uL (1.8-7.7) 3.5 x10^3/uL (1.8-7.7) Lymphocytes # (Auto) 0.6 x10^3/uL (1.0-4.8) 0.8 x10^3/uL (1.0-4.8) Monocytes # (Auto) 0.5 x10^3/uL (0.0-1.1) 0.4 x10^3/uL (0.0-1.1) Eosinophils # (Auto) 0.1 x10^3/uL (0.0-0.7) 0.1 x10^3/uL (0.0-0.7) Basophils # (Auto) 0.1 x10^3/uL (0.0-0.2) 0.1 x10^3/uL (0.0-0.2) Segmented Neutrophils % 92 % (35-66) Band Neutrophils % 1 % (0-9) Lymphocytes % 4 % (24-48) Monocytes % 3 % (0-10) Platelet Estimate Adequate (ADEQUATE) Hypochromasia Mod Anisocytosis Slight Prothrombin Time 14.5 SEC (11.7-14.0) Prothromb Time International Ratio 1.2 (0.8-1.1) Sodium Level 137 mmol/L (136-145) 141 mmol/L (136-145) Potassium Level 4.5 mmol/L (3.5-5.1) 4.4 mmol/L (3.5-5.1) Chloride Level 103 mmol/L (98-107) 108 mmol/L (98-107) Carbon Dioxide Level 29 mmol/L (21-32) 27 mmol/L (21-32) Anion Gap 5 (6-14) 6 (6-14) Blood Urea Nitrogen 40 mg/dL (7-20) 34 mg/dL (7-20) Creatinine 1.3 mg/dL (0.6-1.0) 0.9 mg/dL (0.6-1.0) Estimated GFR (Cockcroft-Gault) 39.5 60.4 BUN/Creatinine Ratio 31 (6-20) Glucose Level 116 mg/dL (70-99) 96 mg/dL (70-99) Calcium Level 9.3 mg/dL (8.5-10.1) 8.2 mg/dL (8.5-10.1) Total Bilirubin 0.2 mg/dL (0.2-1.0) Aspartate Amino Transf (AST/SGOT) 22 U/L (15-37) Alanine Aminotransferase (ALT/SGPT) 12 U/L (14-59) Alkaline Phosphatase 97 U/L (46-116) Troponin I Quantitative 0.042 ng/mL (0.000-0.055) 0.048 ng/mL (0.000-0.055) Total Protein 6.8 g/dL (6.4-8.2) Albumin 2.9 g/dL (3.4-5.0) Albumin/Globulin Ratio 0.7 (1.0-1.7) Review All relevant outside records, renal labs, imaging studies, telemetry/EKG's were reviewed. Images Images CT scan 1. Mild eccentric thickening of the rectal wall. Correlated with clinical examination and colonoscopy if not recently performed. 2. Extensive colonic diverticulosis without CT evidence for acute diverticulitis, although evaluation is limited given flocculated barium. 3. Marked osteopenia. L3 and L4 compression fractures are age indeterminate. 4. Abdominal aortic aneurysm with aortobiiliac stent graft, measures 3.4 x 3.9 cm. No evidence for rupture. 5. Small left pleural effusion with associated dependent opacities, likely atelectasis. RAÚL LIMA MD Jun 05, 2019 11:27
--- NOTE | 2019-06-05 12:28 | PDOC2 ---
GI CONSULT Reason For Consult: GI bleeding. HPI: HPI: 79 y/o female brought to ER after bloody stool x 1 yesterday. Per patient, recurred this morning. Per staff, some formed stool with clot/BRB. Has been fairly stable hemodynamically though drop in hemoglobin from admission. Recently hospitalized at [facility] for bleeding. Thinkis colonoscopy may have been attempted there but incomplete due to anatomy (remote attempt at colonoscopy not completed recalled as well). Denies pain or chronic issues with diarrhea or constipation. Melena not described. Appetite OK. No N, V. Denies heartburn, dysphagia, PUD, liver or pancreatic history. S/p pawel. Former smoker. Occasional alcohol. Not on AC's. On CT here, widespread diverticulosis; was given po contrast. PMH: PMH: COPD, HLP, HTN, aortic valve disease (mixed), anxiety. S/p pawel, hyster, VHR. AAA with intraluminal stenting. FH: Family History: No pertinent hx Social History: Smoke: Quit ALCOHOL: rare Drugs: None ROS: GEN: Denies fevers, chills, sweats HEENT: Denies blurred vision, sore throat CV: Denies chest pain RESP: Denies shortness of air, cough GI: Per HPI : Denies hematuria, dysuria ENDO: Denies weight changes NEURO: Denies confusion, dizziness MSK: Denies weakness, joint pain/swelling SKIN: Denies jaundice, pruritus Vitals: Vitals: Vital Signs Date Time Temp Pulse Resp B/P (MAP) Pulse Ox O2 Delivery O2 Flow Rate FiO2 06/05/19 11:55 98.2 74 20 113/54 (73) 99 Nasal Cannula 2.0 98.2 Labs: Labs: Laboratory Tests Test 06/04/19 21:34 06/04/19 22:17 06/05/19 08:45 Stool Occult Blood Positive (NEG) White Blood Count 7.8 x10^3/uL (4.0-11.0) 4.9 x10^3/uL (4.0-11.0) Red Blood Count 2.56 x10^6/uL (3.50-5.40) 2.17 x10^6/uL (3.50-5.40) Hemoglobin 8.1 g/dL (12.0-15.5) 6.6 g/dL (12.0-15.5) Hematocrit 24.4 % (36.0-47.0) 20.4 % (36.0-47.0) Mean Corpuscular Volume 95 fL (79-100) 94 fL (79-100) Mean Corpuscular Hemoglobin 32 pg (25-35) 31 pg (25-35) Mean Corpuscular Hemoglobin Concent 33 g/dL (31-37) 33 g/dL (31-37) Red Cell Distribution Width 15.0 % (11.5-14.5) 15.0 % (11.5-14.5) Platelet Count 357 x10^3/uL (140-400) 316 x10^3/uL (140-400) Neutrophils (%) (Auto) 85 % (31-73) 72 % (31-73) Lymphocytes (%) (Auto) 7 % (24-48) 17 % (24-48) Monocytes (%) (Auto) 6 % (0-9) 9 % (0-9) Eosinophils (%) (Auto) 1 % (0-3) 1 % (0-3) Basophils (%) (Auto) 1 % (0-3) 1 % (0-3) Neutrophils # (Auto) 6.7 x10^3/uL (1.8-7.7) 3.5 x10^3/uL (1.8-7.7) Lymphocytes # (Auto) 0.6 x10^3/uL (1.0-4.8) 0.8 x10^3/uL (1.0-4.8) Monocytes # (Auto) 0.5 x10^3/uL (0.0-1.1) 0.4 x10^3/uL (0.0-1.1) Eosinophils # (Auto) 0.1 x10^3/uL (0.0-0.7) 0.1 x10^3/uL (0.0-0.7) Basophils # (Auto) 0.1 x10^3/uL (0.0-0.2) 0.1 x10^3/uL (0.0-0.2) Segmented Neutrophils % 92 % (35-66) Band Neutrophils % 1 % (0-9) Lymphocytes % 4 % (24-48) Monocytes % 3 % (0-10) Platelet Estimate Adequate (ADEQUATE) Hypochromasia Mod Anisocytosis Slight Prothrombin Time 14.5 SEC (11.7-14.0) Prothromb Time International Ratio 1.2 (0.8-1.1) Sodium Level 137 mmol/L (136-145) 141 mmol/L (136-145) Potassium Level 4.5 mmol/L (3.5-5.1) 4.4 mmol/L (3.5-5.1) Chloride Level 103 mmol/L (98-107) 108 mmol/L (98-107) Carbon Dioxide Level 29 mmol/L (21-32) 27 mmol/L (21-32) Anion Gap 5 (6-14) 6 (6-14) Blood Urea Nitrogen 40 mg/dL (7-20) 34 mg/dL (7-20) Creatinine 1.3 mg/dL (0.6-1.0) 0.9 mg/dL (0.6-1.0) Estimated GFR (Cockcroft-Gault) 39.5 60.4 BUN/Creatinine Ratio 31 (6-20) Glucose Level 116 mg/dL (70-99) 96 mg/dL (70-99) Calcium Level 9.3 mg/dL (8.5-10.1) 8.2 mg/dL (8.5-10.1) Total Bilirubin 0.2 mg/dL (0.2-1.0) Aspartate Amino Transf (AST/SGOT) 22 U/L (15-37) Alanine Aminotransferase (ALT/SGPT) 12 U/L (14-59) Alkaline Phosphatase 97 U/L (46-116) Troponin I Quantitative 0.042 ng/mL (0.000-0.055) 0.048 ng/mL (0.000-0.055) Total Protein 6.8 g/dL (6.4-8.2) Albumin 2.9 g/dL (3.4-5.0) Albumin/Globulin Ratio 0.7 (1.0-1.7) Allergies: Coded Allergies: No Known Drug Allergies (Unverified , 11/12/18) Medications: Current Medications Medications (Trade) Dose Ordered Sig/Bryan Route PRN Reason Start Time Stop Time Status Last Admin Dose Admin Iohexol (Omnipaque 240 Mg/ml) 50 ml 1X ONCE PO 06/04/19 22:00 06/04/19 22:01 DC 06/04/19 23:05 Sodium Chloride 1,000 ml @ 1,000 mls/hr 1X ONCE IV 06/04/19 22:30 06/04/19 23:29 DC 06/04/19 23:23 Sodium Chloride 1,000 ml @ 100 mls/hr 1X ONCE IV 06/05/19 00:15 06/05/19 10:14 DC 06/05/19 00:15 Duloxetine HCl (Cymbalta) 40 mg DAILY PO 06/05/19 09:00 06/05/19 10:11 Imaging: Imaging: On CT: EXAM: CT Abdomen and Pelvis without IV contrast CLINICAL HISTORY: Rectal bleeding, diverticulitis. COMPARISON: none TECHNIQUE: Helical CT of the abdomen and pelvis without intravenous contrast. Axial, coronal and sagittal reformatted images were generated. PQRS compliance statement - One or more of the following individualized dose reduction techniques were utilized for this study: 1. Automated exposure control 2. Adjustment of the mA and/or kV according to patient size 3. Use of iterative reconstruction technique FINDINGS: Lack of intravenous contrast limits evaluation of solid organs, vasculature, and lymph nodes. Lower chest: Small left pleural effusion. Dependent opacities left lower lobe and lingula likely atelectasis. Mild emphysematous changes are seen with bronchiectasis. Coronary artery calcifications are seen. Abdomen and Pelvis: Subcentimeter hypodense right hepatic lobe lesion is too small to accurately characterize. Cholecystectomy clips are seen. No biliary duct dilatation. Pancreas is borderline atrophic but otherwise unremarkable. Spleen is normal in appearance. Adrenal glands are unremarkable. Left kidney is atrophic. Subcentimeter hypodense left renal lesions are too small to accurately characterize. No renal tract calculus. Bladder is unremarkable. Changes of aortobiiliac stent graft are seen. Abdominal aortic aneurysm is seen within the aneurysm sac measuring 3.4 x 3.9 cm. Moderate colonic stool content is seen. No bowel obstruction. Extensive colonic diverticulosis is seen with flocculated barium within the diverticula resulting in associated streak artifact, limiting evaluation. Within these constraints no CT evidence for acute diverticulitis. Mild eccentric thickening of the rectal wall. No abdominal or pelvic lymphadenopathy. No abdominal or pelvic ascites. A few mildly prominent abdominal and pelvic retroperitoneal and mesenteric lymph nodes are seen, not enlarged by size criteria. No abdominal or pelvic ascites. Bones: Marked osteopenia. L3 and L4 compression fractures, age indeterminate. IMPRESSION: 1. Mild eccentric thickening of the rectal wall. Correlated with clinical examination and colonoscopy if not recently performed. 2. Extensive colonic diverticulosis without CT evidence for acute diverticulitis, although evaluation is limited given flocculated barium. 3. Marked osteopenia. L3 and L4 compression fractures are age indeterminate. 4. Abdominal aortic aneurysm with aortobiiliac stent graft, measures 3.4 x 3.9 cm. No evidence for rupture. 5. Small left pleural effusion with associated dependent opacities, likely atelectasis. PE: GEN: NAD HEENT: Atraumatic, PERRLA LUNGS: CTAB HEART: RRR, loud MARY ABD: NABS, S/ND/NT, no masses EXTREMITY: No edema SKIN: No rashes, no jaundice NEURO/PSYCH: A & O 3, reliable historian? A/P: A/P: IMP: GI bleeding. Historically seems LGI. Has multiple diverticula, so possibly this. Recent at [facility] for bleeding; extent of w/u of findings unclear. Diverticulosis S/p pawel. REC: Nuclear bleeding scan. Prior po contrast may preclude other imaging (CTA, angiography) for time being. Empiric PPI. Transfuse. Continue observation. Old records from [facility]. Thanks. Call if questions. ROBERTO RAMOS MD Jun 05, 2019 12:28
[2019-06-05] MEDS ORDERED: HEPARIN for NUC MED 500 UNIT/5 ML DISP.SYRIN. IV ONE (14:45)
--- NOTE | 2019-06-05 16:38 | RAD ---
Examination: GI BLEED History: Hematochezia Comparison/Correlation: 06/04/2019 CT abdomen pelvis without contrast Findings: 30 mCi technetium 99m UltraTag was utilized for GI bleed scan. Abnormal radiotracer attenuation in distribution is noted involving the right lower abdomen. This is may originate from small bowel but it is of overall indeterminate origin. Accumulation of radiotracer in the left upper quadrant which does not change significantly during the latter part of the exam is of indeterminate significance. Impression: Abnormal attenuation of radiotracer within the right lower abdomen compatible with active GI bleed. Electronically signed by: Olman Mistry MD (06/05/2019 4:35 PM) [facility]
--- NOTE | 2019-06-05 16:55 | EKG ---
[facility] [address] [place] [address] Test Date: 2019-06-04 Test Time: 21:57:30 Pat Name: MIRELLA SAAB Department: Room: Gender: F Data Warehouse Administrator: : [id number] Requested By: BOAZ BARAKAT Order Number: [id number] Reading MD: Measurements Intervals [place] Rate: 86 P: 175 [place]: 188 QRS: -10 QRSD: 106 T: 102 QT: 358 QTc: 431 Interpretive Statements SUPRAVENTRICULAR RHYTHM LEFTWARD AXIS LVH WITH REPOLARIZATION ABNORMALITY ABNORMAL ECG RI6.01 No previous ECG available for comparison
[2019-06-05] MEDS: ATORVASTATIN CALCIUM 40 MG TABLET. PO SCH (22:00)
[2019-06-06] VITALS (7 sets, daily range): BP systolic 107–161; BP diastolic 52–80
[2019-06-06 01:03] LABS: HEMATOCRIT 25.1 % (36.0-47.0); HEMOGLOBIN 8.4 g/dL (12.0-15.5)
[2019-06-06 04:59] LABS: BASO # 0.1 x10^3/uL (0.0-0.2); BASO % 2 % (0-3); EOS # 0.1 x10^3/uL (0.0-0.7); EOS % 4 % (0-3); HEMATOCRIT 25.9 % (36.0-47.0); HEMOGLOBIN 8.5 g/dL (12.0-15.5); LYMPH # 1.2 x10^3/uL (1.0-4.8); LYMPH % 29 % (24-48); MEAN CORPUSCULAR HEMOGLOBIN 30 pg (25-35); MEAN CORPUSCULAR HGB CONC 33 g/dL (31-37); MEAN CORPUSCULAR VOLUME 91 fL (79-100); MONO # 0.4 x10^3/uL (0.0-1.1); MONO % 11 % (0-9); NEUT # 2.3 x10^3/uL (1.8-7.7); NEUT % 55 % (31-73); PLATELET COUNT 217 x10^3/uL (140-400); RED BLOOD COUNT 2.83 x10^6/uL (3.50-5.40); RED CELL DISTRIBUTION WIDTH 15.9 % (11.5-14.5); WHITE BLOOD COUNT 4.1 x10^3/uL (4.0-11.0)
[2019-06-06 05:10] LABS: CALCIUM 8.5 mg/dL (8.5-10.1); CREATININE 0.7 mg/dL (0.6-1.0); GFR 80.7; POTASSIUM 4.3 mmol/L (3.5-5.1)
[2019-06-06] MEDS: DULoxetine HCL 20 MG CAPSULE.DR PO SCH (08:22)
[2019-06-06] MEDS ORDERED: PANTOPRAZOLE 40 MG TABLET.DR. PO ONE (10:00)
--- NOTE | 2019-06-06 11:15 | PDOC ---
Subjective: Subjective: No bleeding or stool, taking liquids. No pain, dizziness, or weakness. Objective: Objective: [facility] records received/reviewed. For melena and anemia, had EGD (H. pylori negative gastritis), attempted colonoscopy (severe diverticulosis and angulation), and barium enema (diverticulosis). Outpt [facility] was recommended. CT chest noted stable (since 2017) mild dilation of pancreatic duct and stable (also since 2017) cystic lesion in pancreatic tail (likely IPMN - no follow-up recommended). Hgb on 05/23 was 8.4. Vital Signs: Vital Signs Date Time Temp Pulse Resp B/P (MAP) Pulse Ox O2 Delivery O2 Flow Rate FiO2 06/06/19 10:00 97.6 82 16 161/74 (103) 99 Nasal Cannula 2.0 97.6 Labs: Laboratory Tests Test 06/06/19 00:55 06/06/19 04:45 Hemoglobin 8.4 g/dL 8.5 g/dL Hematocrit 25.1 % 25.9 % Mean Corpuscular Hemoglobin Concent 33 g/dL 33 g/dL White Blood Count 4.1 x10^3/uL Red Blood Count 2.83 x10^6/uL Mean Corpuscular Volume 91 fL Mean Corpuscular Hemoglobin 30 pg Red Cell Distribution Width 15.9 % Platelet Count 217 x10^3/uL Neutrophils (%) (Auto) 55 % Lymphocytes (%) (Auto) 29 % Monocytes (%) (Auto) 11 % Eosinophils (%) (Auto) 4 % Basophils (%) (Auto) 2 % Neutrophils # (Auto) 2.3 x10^3/uL Lymphocytes # (Auto) 1.2 x10^3/uL Monocytes # (Auto) 0.4 x10^3/uL Eosinophils # (Auto) 0.1 x10^3/uL Basophils # (Auto) 0.1 x10^3/uL Sodium Level 137 mmol/L Potassium Level 4.3 mmol/L Chloride Level 106 mmol/L Carbon Dioxide Level 27 mmol/L Anion Gap 4 Blood Urea Nitrogen 26 mg/dL Creatinine 0.7 mg/dL Estimated GFR (Cockcroft-Gault) 80.7 Glucose Level 90 mg/dL Calcium Level 8.5 mg/dL Imaging: CT A/P IMPRESSION: 1. Mild eccentric thickening of the rectal wall. Correlated with clinical examination and colonoscopy if not recently performed. 2. Extensive colonic diverticulosis without CT evidence for acute diverticulitis, although evaluation is limited given flocculated barium. 3. Marked osteopenia. L3 and L4 compression fractures are age indeterminate. 4. Abdominal aortic aneurysm with aortobiiliac stent graft, measures 3.4 x 3.9 cm. No evidence for rupture. 5. Small left pleural effusion with associated dependent opacities, likely atelectasis. Bleed Scan Impression: Abnormal attenuation of radiotracer within the right lower abdomen compatible with active GI bleed. PE: GEN: NAD LUNGS: CTAB HEART: RRR ABD: NABS, S/ND/NT NEURO/PSYCH: A & O 3 A/P: Hematochezia - resolved, ?diverticular bleed, +bleeding scan as above Anemia - improved/stable w/ transfusion -- Recent workup at [facility] as above. Recs for [facility] as outpt. Tolerating full liquids w/o further bleeding, Hgb stable. Hemodynamically unstable?: No Is patient in severe pain?: No Is NPO status required?: No PHILLIP BELLA Jun 06, 2019 11:15
--- NOTE | 2019-06-06 13:45 | NUR ---
pt had a 6 beat run of v-tach. pt asymptomatic, resting in bed with her eyes closed. VSS. Dr. Win notified. No further orders received at this time.
--- NOTE | 2019-06-06 14:40 | PDOC ---
PROGRESS NOTES Chief Complaint Chief Complaint Acute precip drop hgb s/p BT (hgb 6)\ REctal bleed, diverticulosis, no itis HEme occult positive [facility] resident ([facility]) Dizziness, resolved non sustained vtach (6 beats), asymptomatic positive bleeding scan History of Present Illness History of Present Illness hgb 8 after BT for 6 I was about to dc to [facility] today when RN shows me a 6 beat run vtach, no sxs Pt not the best historian PLAN: Keep tele HH tmr Consult CArds, check elytes etc CPM per GI Full code dw RN zion Vitals Vitals Vital Signs Date Time Temp Pulse Resp B/P (MAP) Pulse Ox O2 Delivery O2 Flow Rate FiO2 06/06/19 10:00 97.6 82 16 161/74 (103) 99 Nasal Cannula 2.0 97.6 Physical Exam General: Alert, Cooperative, No acute distress Lungs: Clear Abdomen: Normal bowel sounds, Soft, No hepatosplenomegaly, No masses, Other (RLQ tender) Extremities: No clubbing, No cyanosis, No edema, Normal pulses, No tenderness/swelling Skin: No rashes, No breakdown, No significant lesion Labs LABS Laboratory Tests Test 06/06/19 00:55 06/06/19 04:45 Hemoglobin 8.4 g/dL (12.0-15.5) 8.5 g/dL (12.0-15.5) Hematocrit 25.1 % (36.0-47.0) 25.9 % (36.0-47.0) Mean Corpuscular Hemoglobin Concent 33 g/dL (31-37) 33 g/dL (31-37) White Blood Count 4.1 x10^3/uL (4.0-11.0) Red Blood Count 2.83 x10^6/uL (3.50-5.40) Mean Corpuscular Volume 91 fL (79-100) Mean Corpuscular Hemoglobin 30 pg (25-35) Red Cell Distribution Width 15.9 % (11.5-14.5) Platelet Count 217 x10^3/uL (140-400) Neutrophils (%) (Auto) 55 % (31-73) Lymphocytes (%) (Auto) 29 % (24-48) Monocytes (%) (Auto) 11 % (0-9) Eosinophils (%) (Auto) 4 % (0-3) Basophils (%) (Auto) 2 % (0-3) Neutrophils # (Auto) 2.3 x10^3/uL (1.8-7.7) Lymphocytes # (Auto) 1.2 x10^3/uL (1.0-4.8) Monocytes # (Auto) 0.4 x10^3/uL (0.0-1.1) Eosinophils # (Auto) 0.1 x10^3/uL (0.0-0.7) Basophils # (Auto) 0.1 x10^3/uL (0.0-0.2) Sodium Level 137 mmol/L (136-145) Potassium Level 4.3 mmol/L (3.5-5.1) Chloride Level 106 mmol/L (98-107) Carbon Dioxide Level 27 mmol/L (21-32) Anion Gap 4 (6-14) Blood Urea Nitrogen 26 mg/dL (7-20) Creatinine 0.7 mg/dL (0.6-1.0) Estimated GFR (Cockcroft-Gault) 80.7 Glucose Level 90 mg/dL (70-99) Calcium Level 8.5 mg/dL (8.5-10.1) Review of Systems Review of Systems weak, fatuigued on long distances, all else is neg Assessment and Plan Assessmemt and Plan Problems Medical Problems: (1) Acute kidney injury Status: Acute (2) Rectal bleeding Status: Acute Comment Review of Relevant I have reviewed the following items lamont (where applicable) has been applied. Labs Laboratory Tests Test 06/04/19 21:34 06/04/19 22:17 06/05/19 08:45 06/06/19 00:55 Stool Occult Blood Positive (NEG) White Blood Count 7.8 x10^3/uL (4.0-11.0) 4.9 x10^3/uL (4.0-11.0) Red Blood Count 2.56 x10^6/uL (3.50-5.40) 2.17 x10^6/uL (3.50-5.40) Hemoglobin 8.1 g/dL (12.0-15.5) 6.6 g/dL (12.0-15.5) 8.4 g/dL (12.0-15.5) Hematocrit 24.4 % (36.0-47.0) 20.4 % (36.0-47.0) 25.1 % (36.0-47.0) Mean Corpuscular Volume 95 fL (79-100) 94 fL (79-100) Mean Corpuscular Hemoglobin 32 pg (25-35) 31 pg (25-35) Mean Corpuscular Hemoglobin Concent 33 g/dL (31-37) 33 g/dL (31-37) 33 g/dL (31-37) Red Cell Distribution Width 15.0 % (11.5-14.5) 15.0 % (11.5-14.5) Platelet Count 357 x10^3/uL (140-400) 316 x10^3/uL (140-400) Neutrophils (%) (Auto) 85 % (31-73) 72 % (31-73) Lymphocytes (%) (Auto) 7 % (24-48) 17 % (24-48) Monocytes (%) (Auto) 6 % (0-9) 9 % (0-9) Eosinophils (%) (Auto) 1 % (0-3) 1 % (0-3) Basophils (%) (Auto) 1 % (0-3) 1 % (0-3) Neutrophils # (Auto) 6.7 x10^3/uL (1.8-7.7) 3.5 x10^3/uL (1.8-7.7) Lymphocytes # (Auto) 0.6 x10^3/uL (1.0-4.8) 0.8 x10^3/uL (1.0-4.8) Monocytes # (Auto) 0.5 x10^3/uL (0.0-1.1) 0.4 x10^3/uL (0.0-1.1) Eosinophils # (Auto) 0.1 x10^3/uL (0.0-0.7) 0.1 x10^3/uL (0.0-0.7) Basophils # (Auto) 0.1 x10^3/uL (0.0-0.2) 0.1 x10^3/uL (0.0-0.2) Segmented Neutrophils % 92 % (35-66) Band Neutrophils % 1 % (0-9) Lymphocytes % 4 % (24-48) Monocytes % 3 % (0-10) Platelet Estimate Adequate (ADEQUATE) Hypochromasia Mod Anisocytosis Slight Prothrombin Time 14.5 SEC (11.7-14.0) Prothromb Time International Ratio 1.2 (0.8-1.1) Sodium Level 137 mmol/L (136-145) 141 mmol/L (136-145) Potassium Level 4.5 mmol/L (3.5-5.1) 4.4 mmol/L (3.5-5.1) Chloride Level 103 mmol/L (98-107) 108 mmol/L (98-107) Carbon Dioxide Level 29 mmol/L (21-32) 27 mmol/L (21-32) Anion Gap 5 (6-14) 6 (6-14) Blood Urea Nitrogen 40 mg/dL (7-20) 34 mg/dL (7-20) Creatinine 1.3 mg/dL (0.6-1.0) 0.9 mg/dL (0.6-1.0) Estimated GFR (Cockcroft-Gault) 39.5 60.4 BUN/Creatinine Ratio 31 (6-20) Glucose Level 116 mg/dL (70-99) 96 mg/dL (70-99) Calcium Level 9.3 mg/dL (8.5-10.1) 8.2 mg/dL (8.5-10.1) Total Bilirubin 0.2 mg/dL (0.2-1.0) Aspartate Amino Transf (AST/SGOT) 22 U/L (15-37) Alanine Aminotransferase (ALT/SGPT) 12 U/L (14-59) Alkaline Phosphatase 97 U/L (46-116) Troponin I Quantitative 0.042 ng/mL (0.000-0.055) 0.048 ng/mL (0.000-0.055) Total Protein 6.8 g/dL (6.4-8.2) Albumin 2.9 g/dL (3.4-5.0) Albumin/Globulin Ratio 0.7 (1.0-1.7) Test 06/06/19 04:45 White Blood Count 4.1 x10^3/uL (4.0-11.0) Red Blood Count 2.83 x10^6/uL (3.50-5.40) Hemoglobin 8.5 g/dL (12.0-15.5) Hematocrit 25.9 % (36.0-47.0) Mean Corpuscular Volume 91 fL (79-100) Mean Corpuscular Hemoglobin 30 pg (25-35) Mean Corpuscular Hemoglobin Concent 33 g/dL (31-37) Red Cell Distribution Width 15.9 % (11.5-14.5) Platelet Count 217 x10^3/uL (140-400) Neutrophils (%) (Auto) 55 % (31-73) Lymphocytes (%) (Auto) 29 % (24-48) Monocytes (%) (Auto) 11 % (0-9) Eosinophils (%) (Auto) 4 % (0-3) Basophils (%) (Auto) 2 % (0-3) Neutrophils # (Auto) 2.3 x10^3/uL (1.8-7.7) Lymphocytes # (Auto) 1.2 x10^3/uL (1.0-4.8) Monocytes # (Auto) 0.4 x10^3/uL (0.0-1.1) Eosinophils # (Auto) 0.1 x10^3/uL (0.0-0.7) Basophils # (Auto) 0.1 x10^3/uL (0.0-0.2) Sodium Level 137 mmol/L (136-145) Potassium Level 4.3 mmol/L (3.5-5.1) Chloride Level 106 mmol/L (98-107) Carbon Dioxide Level 27 mmol/L (21-32) Anion Gap 4 (6-14) Blood Urea Nitrogen 26 mg/dL (7-20) Creatinine 0.7 mg/dL (0.6-1.0) Estimated GFR (Cockcroft-Gault) 80.7 Glucose Level 90 mg/dL (70-99) Calcium Level 8.5 mg/dL (8.5-10.1) Laboratory Tests Test 06/06/19 00:55 06/06/19 04:45 Hemoglobin 8.4 g/dL (12.0-15.5) 8.5 g/dL (12.0-15.5) Hematocrit 25.1 % (36.0-47.0) 25.9 % (36.0-47.0) Mean Corpuscular Hemoglobin Concent 33 g/dL (31-37) 33 g/dL (31-37) White Blood Count 4.1 x10^3/uL (4.0-11.0) Red Blood Count 2.83 x10^6/uL (3.50-5.40) Mean Corpuscular Volume 91 fL (79-100) Mean Corpuscular Hemoglobin 30 pg (25-35) Red Cell Distribution Width 15.9 % (11.5-14.5) Platelet Count 217 x10^3/uL (140-400) Neutrophils (%) (Auto) 55 % (31-73) Lymphocytes (%) (Auto) 29 % (24-48) Monocytes (%) (Auto) 11 % (0-9) Eosinophils (%) (Auto) 4 % (0-3) Basophils (%) (Auto) 2 % (0-3) Neutrophils # (Auto) 2.3 x10^3/uL (1.8-7.7) Lymphocytes # (Auto) 1.2 x10^3/uL (1.0-4.8) Monocytes # (Auto) 0.4 x10^3/uL (0.0-1.1) Eosinophils # (Auto) 0.1 x10^3/uL (0.0-0.7) Basophils # (Auto) 0.1 x10^3/uL (0.0-0.2) Sodium Level 137 mmol/L (136-145) Potassium Level 4.3 mmol/L (3.5-5.1) Chloride Level 106 mmol/L (98-107) Carbon Dioxide Level 27 mmol/L (21-32) Anion Gap 4 (6-14) Blood Urea Nitrogen 26 mg/dL (7-20) Creatinine 0.7 mg/dL (0.6-1.0) Estimated GFR (Cockcroft-Gault) 80.7 Glucose Level 90 mg/dL (70-99) Calcium Level 8.5 mg/dL (8.5-10.1) Medications Current Medications Iohexol (Omnipaque 300 Mg/ml) 100 ml 1X ONCE IV ; Start 06/04/19 at 22:00; Stop 06/04/19 at 22:01; Status DC Iohexol (Omnipaque 240 Mg/ml) 50 ml 1X ONCE PO Last administered on 06/04/19at 23:05; Start 06/04/19 at 22:00; Stop 06/04/19 at 22:01; Status DC Info (CONTRAST GIVEN -- Rx MONITORING) 1 each PRN DAILY PRN MC SEE COMMENTS; Start 06/04/19 at 22:00; Stop 06/06/19 at 21:59 Sodium Chloride 1,000 ml @ 1,000 mls/hr 1X ONCE IV Last administered on 06/04/19at 23:23; Start 06/04/19 at 22:30; Stop 06/04/19 at 23:29; Status DC Ondansetron HCl (Zofran) 4 mg PRN Q8HRS PRN IV NAUSEA/VOMITING; Start 06/05/19 at 00:15; Stop 06/05/19 at 07:30; Status DC Fentanyl Citrate (Fentanyl 2ml Vial) 50 mcg PRN Q1HR PRN IV PAIN; Start 06/05/19 at 00:15; Stop 06/06/19 at 00:14; Status DC Sodium Chloride 1,000 ml @ 100 mls/hr 1X ONCE IV Last administered on 06/05/19at 00:15; Start 06/05/19 at 00:15; Stop 06/05/19 at 10:14; Status DC Ondansetron HCl (Zofran) 4 mg PRN Q4HRS PRN IV NAUSEA/VOMITING; Start 06/05/19 at 07:30 Duloxetine HCl (Cymbalta) 40 mg DAILY PO Last administered on 06/06/19at 08:22; Start 06/05/19 at 09:00 Diltiazem HCl (Cardizem 24hr Cd) 360 mg DAILY PO Last administered on 06/06/19at 08:22; Start 06/05/19 at 09:00 Atorvastatin Calcium (Lipitor) 80 mg QHS PO Last administered on 06/05/19at 22:00; Start 06/05/19 at 21:00 Acetaminophen (Tylenol) 650 mg PRN Q6HRS PRN PO pain/fever Last administered on 06/06/19at 05:14; Start 06/05/19 at 07:30 Heparin Sodium (Porcine) (HEPARIN for NUC MED) 100 unit 1X ONCE IV ; Start 06/05/19 at 14:45; Stop 06/05/19 at 14:46; Status DC Pantoprazole Sodium (Protonix) 40 mg DAILYAC PO ; Start 06/07/19 at 07:30 Pantoprazole Sodium (Protonix) 40 mg 1X ONCE PO Last administered on 06/06/19at 10:31; Start 06/06/19 at 10:00; Stop 06/06/19 at 10:01; Status DC Active Scripts Active Reported Cymbalta (Duloxetine Hcl) 20 Mg Capsule.dr 40 Mg PO DAILY Rosuvastatin Calcium 20 Mg Tablet 20 Mg PO DAILY Valsartan 160 Mg Tablet 160 Mg PO DAILY Diltiazem Xt (Diltiazem Hcl) 360 Mg Capsule.er 360 Mg PO DAILY Vitals/I & O Vital Sign - Last 24 Hours 06/05/19 06/05/19 06/05/19 06/05/19 16:57 17:14 17:32 17:46 Temp 98.5 98.4 97.8 97.8 98.5 98.4 97.8 97.8 Pulse 102 104 105 104 Resp 04 21 12 12 B/P (MAP) 112/71 101/61 111/63 107/69 06/05/19 06/05/19 06/05/19 06/05/19 18:01 18:30 19:00 19:00 Temp 98.4 97.9 97.4 97.9 98.4 97.9 97.4 97.9 Pulse 105 104 99 102 Resp 04 21 20 12 B/P (MAP) 101/66 105/64 114/63 (80) 122/65 Pulse Ox 100 O2 Delivery Nasal Cannula O2 Flow Rate 2.0 06/05/19 06/05/19 06/05/19 06/05/19 19:55 20:15 21:38 21:58 Temp 97.5 98.3 98.2 97.5 98.3 98.2 Pulse 95 99 98 Resp B/P (MAP) 119/46 112/52 96/46 O2 Delivery Nasal Cannula O2 Flow Rate 2.0 06/05/19 06/05/19 06/05/19 06/06/19 22:58 22:58 23:58 01:15 Temp 98.3 98.3 97.9 98.3 98.3 98.3 97.9 98.3 Pulse 99 99 86 91 Resp 18 B/P (MAP) 122/51 122/51 (74) 121/55 107/54 Pulse Ox 100 O2 Delivery Nasal Cannula O2 Flow Rate 2.0 06/06/19 06/06/19 06/06/19 06/06/19 03:00 07:00 07:35 08:00 Temp 98.9 97.0 97.9 98.9 97.0 97.9 Pulse 91 83 96 Resp 20 20 18 B/P (MAP) 133/73 (93) 126/64 (84) 152/73 (99) Pulse Ox 98 99 99 O2 Delivery Nasal Cannula BiPAP/CPAP Nasal Cannula Nasal Cannula O2 Flow Rate 2.0 2.0 2.0 06/06/19 06/06/19 08:22 10:00 Temp 97.6 97.6 Pulse 96 82 Resp 16 B/P (MAP) 152/73 161/74 (103) Pulse Ox 99 O2 Delivery Nasal Cannula O2 Flow Rate 2.0 Intake and Output 06/05/19 06/05/19 06/06/19 15:00 23:00 07:00 Intake Total 300 ml 730 ml Balance 300 ml 730 ml Hemodynamically unstable?: No Is patient in severe pain?: No Is NPO status required?: No CHINA LANGE MD Jun 06, 2019 14:40
--- NOTE | 2019-06-06 15:02 | NUR ---
SS following for discharge planning. SS reviewed pt chart. Pt is from [facility], ; fax [phone]. SS contacted [facility] to verify pt's previous placement. Ezequiel Daniels reported that pt is a LTC resident from there facility and is able to return when medically stable for discharge. SS will continue to follow for discharge planning.
[2019-06-06] MEDS: ATORVASTATIN CALCIUM 40 MG TABLET. PO SCH (22:02)
[2019-06-07 03:10] VITALS: BP 132/53
[2019-06-07 04:57] LABS: BASO % 1 % (0-3); EOS # 0.2 x10^3/uL (0.0-0.7); EOS % 6 % (0-3); HEMATOCRIT 25.1 % (36.0-47.0); HEMOGLOBIN 8.4 g/dL (12.0-15.5); LYMPH % 26 % (24-48); MEAN CORPUSCULAR HEMOGLOBIN 30 pg (25-35); MEAN CORPUSCULAR HGB CONC 33 g/dL (31-37); MEAN CORPUSCULAR VOLUME 91 fL (79-100); MONO # 0.5 x10^3/uL (0.0-1.1); MONO % 12 % (0-9); NEUT # 2.2 x10^3/uL (1.8-7.7); NEUT % 56 % (31-73); PLATELET COUNT 227 x10^3/uL (140-400); RED BLOOD COUNT 2.76 x10^6/uL (3.50-5.40); RED CELL DISTRIBUTION WIDTH 15.2 % (11.5-14.5); WHITE BLOOD COUNT 3.9 x10^3/uL (4.0-11.0)
[2019-06-07 05:25] LABS: CALCIUM 8.6 mg/dL (8.5-10.1); CREATININE 0.8 mg/dL (0.6-1.0); GFR 69.2; POTASSIUM 3.9 mmol/L (3.5-5.1)
[2019-06-07 07:00] VITALS: BP 118/70
[2019-06-07] MEDS: DULoxetine HCL 20 MG CAPSULE.DR PO SCH (08:24)
[2019-06-07] MEDS: PANTOPRAZOLE 40 MG TABLET.DR. PO SCH (08:25)
[2019-06-07 11:00] VITALS: BP 137/67
[2019-06-07] MEDS ORDERED: PANT40TA77 PO (11:03)
--- NOTE | 2019-06-07 11:04 | SNU/HH DC ---
DISCHARGE ORDERS DISCHARGE INFORMATION: DISCHARGE DATE: Jun 07, 2019 FINAL DIAGNOSIS Problems Medical Problems: (1) Acute kidney injury Status: Acute (2) Rectal bleeding Status: Acute CONDITION ON DISCHARGE: Stable CODE STATUS: Code Status: Full PRISON: SNF STAY <30 DAYS: Yes HOSPICE: HOSPICE: No HOSPICE EVAL & TREAT: No LTAC: ADMIT TO LTAC: No POST DISCHARGE ORDERS: ACTIVITY ORDERS: Bedrest today DIET AFTER DISCHARGE: Cardiac CHECKS AFTER DISCHARGE: CHECKS AFTER DISCHARGE: Check blood press - daily, Check blood sugar, ac/hs FOLLOW-UP: PHYSICIAN FOLLOW-UP: avoid nsaids or asa if possible, GI bleed hx, now resolved TREATMENT/EQUIPMENT ORDERS: Physical Therapy For: Evalulation/Treatment Occupational Therapy For: Evaluation/Treatment DISCHARGE MEDICATIONS: Home Meds Active Scripts Pantoprazole Sodium (PANTOPRAZOLE SODIUM ) 40 Mg Tablet.dr, 40 MG PO DAILYAC for gi bleed for 60 Days, #60 TAB.SR Prov:CHINA LANGE MD 06/07/19 Reported Medications Duloxetine Hcl (CYMBALTA) 20 Mg Capsule.dr, 40 MG PO DAILY for DEPRESSION, CAP 06/05/19 Rosuvastatin Calcium (Rosuvastatin Calcium) 20 Mg Tablet, 20 MG PO DAILY for High Cholesterol 11/13/18 Valsartan (Valsartan) 160 Mg Tablet, 160 MG PO DAILY for Hypertension 11/13/18 Diltiazem Hcl (DILTIAZEM XT) 360 Mg Capsule.er, 360 MG PO DAILY for Hypertension 11/13/18 CHINA LANGE MD Jun 07, 2019 11:04
--- NOTE | 2019-06-07 11:24 | PDOC ---
Subjective: Subjective: Stooled yesterday, no blood. Tolerating full liquids, wants more. Would like to go back to [facility] today. Objective: Vital Signs: Vital Signs Date Time Temp Pulse Resp B/P (MAP) Pulse Ox O2 Delivery O2 Flow Rate FiO2 06/07/19 08:30 77 118/70 06/07/19 08:00 Nasal Cannula 2.0 06/07/19 07:00 97.7 18 96 97.7 Labs: Laboratory Tests Test 06/07/19 03:20 White Blood Count 3.9 x10^3/uL Red Blood Count 2.76 x10^6/uL Hemoglobin 8.4 g/dL Hematocrit 25.1 % Mean Corpuscular Volume 91 fL Mean Corpuscular Hemoglobin 30 pg Mean Corpuscular Hemoglobin Concent 33 g/dL Red Cell Distribution Width 15.2 % Platelet Count 227 x10^3/uL Neutrophils (%) (Auto) 56 % Lymphocytes (%) (Auto) 26 % Monocytes (%) (Auto) 12 % Eosinophils (%) (Auto) 6 % Basophils (%) (Auto) 1 % Neutrophils # (Auto) 2.2 x10^3/uL Lymphocytes # (Auto) 1.0 x10^3/uL Monocytes # (Auto) 0.5 x10^3/uL Eosinophils # (Auto) 0.2 x10^3/uL Basophils # (Auto) 0.0 x10^3/uL Sodium Level 138 mmol/L Potassium Level 3.9 mmol/L Chloride Level 104 mmol/L Carbon Dioxide Level 30 mmol/L Anion Gap 4 Blood Urea Nitrogen 21 mg/dL Creatinine 0.8 mg/dL Estimated GFR (Cockcroft-Gault) 69.2 Glucose Level 83 mg/dL Calcium Level 8.6 mg/dL PE: GEN: NAD LUNGS: CTAB HEART: RRR ABD: NABS, S/ND/NT NEURO/PSYCH: A & O 3 A/P: ?diverticular bleed - resolved Anemia - stable - previous workup per yesterday's note @ [facility] w/ recs for outpt SBCE -- ADAT. Dc per primary on PPI, follow-up for outpt SBCE. Check anemia parameters, consider addition of iron. Hemodynamically unstable?: No Is patient in severe pain?: No Is NPO status required?: No PHILLIP BELLA Jun 07, 2019 11:24
--- NOTE | 2019-06-07 12:26 | PDOC2 ---
KYLE BABIN NURSE ADMINISTRATOR 06/07/19 1226: CARDIAC CONSULT DATE OF CONSULT Date of Consult DATE: 06/07/19 TIME: 12:04 REASON FOR CONSULT Reason for Consult: NSVT REFERRING PHYSICIAN Referring Physician: Audelia SOURCE Source: Chart review, Patient HISTORY OF PRESENT ILLNESS HISTORY OF PRESENT ILLNESS This is a pleasant 79 yo female admitted for complains blood in stool and abdominal pain. Further testing revealed GI bleed requiring transfusion but could not ascertain exactly where the bleed is coming from but suspicion is in the lower GI. SBCE has been suggested. Currently pt is is stable. She is not having any CP, palpitations and no SOA with longstanding hx of COPD with O2 supplementation. Consult is for NSVT to which she is asymptomatic. Per hx she has hx of CAD with no intervention and has valvular disease. 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 No dizziness, passing out. PAST MEDICAL HISTORY Cardiovascular: AFIB (paflutter), CAD, CHF (diastolic), HTN, Hyperlipidemia, Aortic stenosis, Valve insufficiency (MR), Other (AAA; LE PAD; carotid artery disease) Pulmonary: COPD, Pneumonia CENTRAL NERVOUS SYSTEM: Dementia GI: Diverticulosis, GERD, GI bleed Heme/Onc: Anemia NOS Hepatobiliary: No pertinent hx Psych: No pertinent hx Musculoskeletal: Osteoarthritis Infectious disease: No pertinent hx ENT: No pertinent hx Renal/: Urinary Incontinence Endocrine: Osteopenia Dermatology: Other (skin CA) PAST SURGICAL HISTORY Past Surgical History: Appendectomy, Cholecystectomy, Hernia Repair, Hysterectomy, Other (aortobiiliac stent graft; [facility] no intervention 11/2016; left eye lid surgery) SOCIAL HISTORY Smoke: Quit ALCOHOL: none Drugs: None Lives: Alf CURRENT MEDICATIONS CURRENT MEDICATIONS Current Medications Medications (Trade) Dose Ordered Sig/Bryan Route PRN Reason Start Time Stop Time Status Last Admin Dose Admin Pantoprazole Sodium (Protonix) 40 mg DAILYAC PO 06/07/19 07:30 06/07/19 08:25 ALLERGIES ALLERGIES: Coded Allergies: No Known Drug Allergies (Unverified , 11/12/18) ROS Review of System 14 point ROS evaluated with pertinent positives noted per HPI PHYSICAL EXAM General: Alert, Oriented X3, Cooperative, No acute distress HEENT: Atraumatic, Mucous membr. moist/pink Lungs: Other (diminished bases) Heart: Regular rate (SR), Normal S1, Normal S2, Other (4/6 systolic murmur to erb) Abdomen: Soft, No tenderness Extremities: No cyanosis, No edema Skin: No breakdown, No significant lesion Neuro: Normal speech, Sensation intact Psych/Mental Status: Mental status NL, Mood NL MUSCULOSKELETAL: Osteoarthritic changes both hands VITALS/I&O VITALS/I&O: Vital Signs Date Time Temp Pulse Resp B/P (MAP) Pulse Ox O2 Delivery O2 Flow Rate FiO2 06/07/19 11:00 97.8 71 16 137/67 (90) 98 Room Air 97.8 06/07/19 08:00 2.0 I & O 06/06/19 06/06/19 06/07/19 15:00 23:00 07:00 Intake Total 300 ml 300 ml 200 ml Balance 300 ml 300 ml 200 ml LABS Lab: Laboratory Tests Test 06/07/19 03:20 White Blood Count 3.9 x10^3/uL (4.0-11.0) L Red Blood Count 2.76 x10^6/uL (3.50-5.40) L Hemoglobin 8.4 g/dL (12.0-15.5) L Hematocrit 25.1 % (36.0-47.0) L Mean Corpuscular Volume 91 fL (79-100) Mean Corpuscular Hemoglobin 30 pg (25-35) Mean Corpuscular Hemoglobin Concent 33 g/dL (31-37) Red Cell Distribution Width 15.2 % (11.5-14.5) H Platelet Count 227 x10^3/uL (140-400) Neutrophils (%) (Auto) 56 % (31-73) Lymphocytes (%) (Auto) 26 % (24-48) Monocytes (%) (Auto) 12 % (0-9) H Eosinophils (%) (Auto) 6 % (0-3) H Basophils (%) (Auto) 1 % (0-3) Neutrophils # (Auto) 2.2 x10^3/uL (1.8-7.7) Lymphocytes # (Auto) 1.0 x10^3/uL (1.0-4.8) Monocytes # (Auto) 0.5 x10^3/uL (0.0-1.1) Eosinophils # (Auto) 0.2 x10^3/uL (0.0-0.7) Basophils # (Auto) 0.0 x10^3/uL (0.0-0.2) Sodium Level 138 mmol/L (136-145) Potassium Level 3.9 mmol/L (3.5-5.1) Chloride Level 104 mmol/L (98-107) Carbon Dioxide Level 30 mmol/L (21-32) Anion Gap 4 (6-14) L Blood Urea Nitrogen 21 mg/dL (7-20) H Creatinine 0.8 mg/dL (0.6-1.0) Estimated GFR (Cockcroft-Gault) 69.2 Glucose Level 83 mg/dL (70-99) Calcium Level 8.6 mg/dL (8.5-10.1) Laboratory Tests 06/07/19 03:20 Laboratory Tests 06/07/19 03:20 ECHOCARDIOGRAM ECHOCARDIOGRAM <Conclusion> The left ventricular systolic function is normal and the ejection fraction is within normal range. The Ejection Fraction is 55-60%. There is severe concentric left ventricular hypertrophy. There is normal LV segmental wall motion. There is at least moderate valvular aortic stenosis. Calculated aortic valve area is 1.2 cm2 with maximum pressure gradient of 52 mmHg and mean pressure gradient of 27 mmHg without valsalva. With valsava the maximum pressure gradient increases to 84 mmHg with a mean pressure gradient of 47 mmHg. Doppler and Color Flow revealed moderate aortic regurgitation. (There is mixed aortic valve disease.) Doppler and Color-flow revealed moderate mitral regurgitation. Cannot rule out mild component of OMAR Doppler and Color Flow revealed mild tricuspid regurgitation. There is moderate pulmonary hypertension. The PA pressure was estimated at 41 mmHg. DATE: 11/15/181428 ASSESSMENT/PLAN ASSESSMENT/PLAN 1. Acute GI bleed: post transfusion. outpt SBCE per GI 2. Asymptomatic Arrhythmia: PAFIB and NSVT otherwise SR. 3. Moderate /MR 4. COPD: O2 dependent 5. Hx of nonobstructive CAD 6. HLP 7. LE PAD: S/P aortoiliac graft with small AAA. No claudication Recommendations 1. Not a candidate for NOAC with GI bleed. ASA for stroke prevention. 2. Continue cardizem. May consider decreasing cardizem and introduce low dose BB to further suppressed ectopies. 3. TTE today and reeval valvular disease 4. Continue statin 5. Consider outpt stress test once GI issues are resolved. 6. Follow up with Dr. Wong for outpt cardiology. Consider outpt [facility] KEM ALVAREZ MD 06/07/191947: CARDIAC CONSULT ASSESSMENT/PLAN ASSESSMENT/PLAN Patient seen and examined. Agree with ACCOUNTANT AUDITOR's assessment and plan. Episode of NSVT noted - agree with starting BB Check 2D echo to assess LVF Plan outpatient MPI and event monitor and FU with primary cardiology Thank you for your consultation KYLE BABIN APRN Jun 07, 2019 12:26 KEM ALVAREZ MD Jun 07, 2019 19:48
[2019-06-07 12:45] LABS: CHOLESTEROL/HDL RATIO 2.9
--- NOTE | 2019-06-07 13:05 | NUR ---
SS following up with discharge planning. Discharge orders received for return to [facility], ; fax [phone]. SS phoned and faxed discharge orders and clinical to [facility]. SS awaiting communication from [facility] in regards to transport. SS will continue to follow for discharge planning.
--- NOTE | 2019-06-07 14:22 | PDOC ---
PROGRESS NOTES Chief Complaint Chief Complaint Acute precip drop hgb s/p BT (hgb 6)\ REctal bleed, diverticulosis, no itis HEme occult positive SNU resident (lora garsia) Dizziness, resolved non sustained vtach (6 beats), asymptomatic positive bleeding scan History of Present Illness History of Present Illness hgb 8 stable after BT for 6 I was about to dc to [place] today when RN shows me a 6 beat run vtach, no sxs Pt not the best historian CARDs has ordered echo (2:30 pm thursday , not yet done) PLAN: Keep tele HH tmr echo unlikely will be able to dc today to SNU dw RN Vitals Vitals Vital Signs Date Time Temp Pulse Resp B/P (MAP) Pulse Ox O2 Delivery O2 Flow Rate FiO2 06/07/19 11:00 97.8 71 16 137/67 (90) 98 Room Air 97.8 06/07/19 08:00 2.0 Physical Exam General: Alert, Cooperative, No acute distress Heart: Regular rate, Normal S1, Normal S2, No murmurs Lungs: Clear Abdomen: Normal bowel sounds, Soft, No hepatosplenomegaly, No masses, Other (RLQ tender) Extremities: No clubbing, No cyanosis, No edema, Normal pulses, No tenderness/swelling Skin: No rashes, No breakdown, No significant lesion Labs LABS Laboratory Tests Test 06/07/19 03:20 White Blood Count 3.9 x10^3/uL (4.0-11.0) Red Blood Count 2.76 x10^6/uL (3.50-5.40) Hemoglobin 8.4 g/dL (12.0-15.5) Hematocrit 25.1 % (36.0-47.0) Mean Corpuscular Volume 91 fL (79-100) Mean Corpuscular Hemoglobin 30 pg (25-35) Mean Corpuscular Hemoglobin Concent 33 g/dL (31-37) Red Cell Distribution Width 15.2 % (11.5-14.5) Platelet Count 227 x10^3/uL (140-400) Neutrophils (%) (Auto) 56 % (31-73) Lymphocytes (%) (Auto) 26 % (24-48) Monocytes (%) (Auto) 12 % (0-9) Eosinophils (%) (Auto) 6 % (0-3) Basophils (%) (Auto) 1 % (0-3) Neutrophils # (Auto) 2.2 x10^3/uL (1.8-7.7) Lymphocytes # (Auto) 1.0 x10^3/uL (1.0-4.8) Monocytes # (Auto) 0.5 x10^3/uL (0.0-1.1) Eosinophils # (Auto) 0.2 x10^3/uL (0.0-0.7) Basophils # (Auto) 0.0 x10^3/uL (0.0-0.2) Sodium Level 138 mmol/L (136-145) Potassium Level 3.9 mmol/L (3.5-5.1) Chloride Level 104 mmol/L (98-107) Carbon Dioxide Level 30 mmol/L (21-32) Anion Gap 4 (6-14) Blood Urea Nitrogen 21 mg/dL (7-20) Creatinine 0.8 mg/dL (0.6-1.0) Estimated GFR (Cockcroft-Gault) 69.2 Glucose Level 83 mg/dL (70-99) Calcium Level 8.6 mg/dL (8.5-10.1) Iron Level 26 ug/dL (50-170) Total Iron Binding Capacity 291 ug/dL (250-450) Iron Saturation 9 % (15-34) Triglycerides Level 71 mg/dL (0-150) Cholesterol Level 108 mg/dL (0-200) LDL Cholesterol, Calculated 57 mg/dL (0-100) VLDL Cholesterol, Calculated 14 mg/dL (0-40) Non-HDL Cholesterol Calculated 71 mg/dL (0-129) HDL Cholesterol 37 mg/dL (40-60) Cholesterol/HDL Ratio 2.9 Vitamin B12 Level 796 pg/mL (247-911) Thyroid Stimulating Hormone (TSH) 7.514 uIU/mL (0.358-3.74) Review of Systems Review of Systems all else neg 14 pt reviewed with her Assessment and Plan Assessmemt and Plan Problems Medical Problems: (1) Acute kidney injury Status: Acute (2) Rectal bleeding Status: Acute Comment Review of Relevant I have reviewed the following items lamont (where applicable) has been applied. Labs Laboratory Tests Test 06/06/19 00:55 06/06/19 04:45 06/07/19 03:20 Hemoglobin 8.4 g/dL (12.0-15.5) 8.5 g/dL (12.0-15.5) 8.4 g/dL (12.0-15.5) Hematocrit 25.1 % (36.0-47.0) 25.9 % (36.0-47.0) 25.1 % (36.0-47.0) Mean Corpuscular Hemoglobin Concent 33 g/dL (31-37) 33 g/dL (31-37) 33 g/dL (31-37) White Blood Count 4.1 x10^3/uL (4.0-11.0) 3.9 x10^3/uL (4.0-11.0) Red Blood Count 2.83 x10^6/uL (3.50-5.40) 2.76 x10^6/uL (3.50-5.40) Mean Corpuscular Volume 91 fL (79-100) 91 fL (79-100) Mean Corpuscular Hemoglobin 30 pg (25-35) 30 pg (25-35) Red Cell Distribution Width 15.9 % (11.5-14.5) 15.2 % (11.5-14.5) Platelet Count 217 x10^3/uL (140-400) 227 x10^3/uL (140-400) Neutrophils (%) (Auto) 55 % (31-73) 56 % (31-73) Lymphocytes (%) (Auto) 29 % (24-48) 26 % (24-48) Monocytes (%) (Auto) 11 % (0-9) 12 % (0-9) Eosinophils (%) (Auto) 4 % (0-3) 6 % (0-3) Basophils (%) (Auto) 2 % (0-3) 1 % (0-3) Neutrophils # (Auto) 2.3 x10^3/uL (1.8-7.7) 2.2 x10^3/uL (1.8-7.7) Lymphocytes # (Auto) 1.2 x10^3/uL (1.0-4.8) 1.0 x10^3/uL (1.0-4.8) Monocytes # (Auto) 0.4 x10^3/uL (0.0-1.1) 0.5 x10^3/uL (0.0-1.1) Eosinophils # (Auto) 0.1 x10^3/uL (0.0-0.7) 0.2 x10^3/uL (0.0-0.7) Basophils # (Auto) 0.1 x10^3/uL (0.0-0.2) 0.0 x10^3/uL (0.0-0.2) Sodium Level 137 mmol/L (136-145) 138 mmol/L (136-145) Potassium Level 4.3 mmol/L (3.5-5.1) 3.9 mmol/L (3.5-5.1) Chloride Level 106 mmol/L (98-107) 104 mmol/L (98-107) Carbon Dioxide Level 27 mmol/L (21-32) 30 mmol/L (21-32) Anion Gap 4 (6-14) 4 (6-14) Blood Urea Nitrogen 26 mg/dL (7-20) 21 mg/dL (7-20) Creatinine 0.7 mg/dL (0.6-1.0) 0.8 mg/dL (0.6-1.0) Estimated GFR (Cockcroft-Gault) 80.7 69.2 Glucose Level 90 mg/dL (70-99) 83 mg/dL (70-99) Calcium Level 8.5 mg/dL (8.5-10.1) 8.6 mg/dL (8.5-10.1) Magnesium Level 2.1 mg/dL (1.8-2.4) Iron Level 26 ug/dL (50-170) Total Iron Binding Capacity 291 ug/dL (250-450) Iron Saturation 9 % (15-34) Triglycerides Level 71 mg/dL (0-150) Cholesterol Level 108 mg/dL (0-200) LDL Cholesterol, Calculated 57 mg/dL (0-100) VLDL Cholesterol, Calculated 14 mg/dL (0-40) Non-HDL Cholesterol Calculated 71 mg/dL (0-129) HDL Cholesterol 37 mg/dL (40-60) Cholesterol/HDL Ratio 2.9 Vitamin B12 Level 796 pg/mL (247-911) Thyroid Stimulating Hormone (TSH) 7.514 uIU/mL (0.358-3.74) Laboratory Tests Test 06/07/19 03:20 White Blood Count 3.9 x10^3/uL (4.0-11.0) Red Blood Count 2.76 x10^6/uL (3.50-5.40) Hemoglobin 8.4 g/dL (12.0-15.5) Hematocrit 25.1 % (36.0-47.0) Mean Corpuscular Volume 91 fL (79-100) Mean Corpuscular Hemoglobin 30 pg (25-35) Mean Corpuscular Hemoglobin Concent 33 g/dL (31-37) Red Cell Distribution Width 15.2 % (11.5-14.5) Platelet Count 227 x10^3/uL (140-400) Neutrophils (%) (Auto) 56 % (31-73) Lymphocytes (%) (Auto) 26 % (24-48) Monocytes (%) (Auto) 12 % (0-9) Eosinophils (%) (Auto) 6 % (0-3) Basophils (%) (Auto) 1 % (0-3) Neutrophils # (Auto) 2.2 x10^3/uL (1.8-7.7) Lymphocytes # (Auto) 1.0 x10^3/uL (1.0-4.8) Monocytes # (Auto) 0.5 x10^3/uL (0.0-1.1) Eosinophils # (Auto) 0.2 x10^3/uL (0.0-0.7) Basophils # (Auto) 0.0 x10^3/uL (0.0-0.2) Sodium Level 138 mmol/L (136-145) Potassium Level 3.9 mmol/L (3.5-5.1) Chloride Level 104 mmol/L (98-107) Carbon Dioxide Level 30 mmol/L (21-32) Anion Gap 4 (6-14) Blood Urea Nitrogen 21 mg/dL (7-20) Creatinine 0.8 mg/dL (0.6-1.0) Estimated GFR (Cockcroft-Gault) 69.2 Glucose Level 83 mg/dL (70-99) Calcium Level 8.6 mg/dL (8.5-10.1) Iron Level 26 ug/dL (50-170) Total Iron Binding Capacity 291 ug/dL (250-450) Iron Saturation 9 % (15-34) Triglycerides Level 71 mg/dL (0-150) Cholesterol Level 108 mg/dL (0-200) LDL Cholesterol, Calculated 57 mg/dL (0-100) VLDL Cholesterol, Calculated 14 mg/dL (0-40) Non-HDL Cholesterol Calculated 71 mg/dL (0-129) HDL Cholesterol 37 mg/dL (40-60) Cholesterol/HDL Ratio 2.9 Vitamin B12 Level 796 pg/mL (247-911) Thyroid Stimulating Hormone (TSH) 7.514 uIU/mL (0.358-3.74) Medications Current Medications Iohexol (Omnipaque 300 Mg/ml) 100 ml 1X ONCE IV ; Start 06/04/19 at 22:00; Stop 06/04/19 at 22:01; Status DC Iohexol (Omnipaque 240 Mg/ml) 50 ml 1X ONCE PO Last administered on 06/04/19at 23:05; Start 06/04/19 at 22:00; Stop 06/04/19 at 22:01; Status DC Info (CONTRAST GIVEN -- Rx MONITORING) 1 each PRN DAILY PRN MC SEE COMMENTS; Start 06/04/19 at 22:00; Stop 06/06/19 at 21:59; Status DC Sodium Chloride 1,000 ml @ 1,000 mls/hr 1X ONCE IV Last administered on 06/04/19at 23:23; Start 06/04/19 at 22:30; Stop 06/04/19 at 23:29; Status DC Ondansetron HCl (Zofran) 4 mg PRN Q8HRS PRN IV NAUSEA/VOMITING; Start 06/05/19 at 00:15; Stop 06/05/19 at 07:30; Status DC Fentanyl Citrate (Fentanyl 2ml Vial) 50 mcg PRN Q1HR PRN IV PAIN; Start at 00:15; Stop 06/06/19 at 00:14; Status DC Sodium Chloride 1,000 ml @ 100 mls/hr 1X ONCE IV Last administered on 05/12 10/28at 00:15; Start 06/05/19 at 00:15; Stop 06/05/19 at 10:14; Status DC Ondansetron HCl (Zofran) 4 mg PRN Q4HRS PRN IV NAUSEA/VOMITING; Start 06/05/19 at 07:30 Duloxetine HCl (Cymbalta) 40 mg DAILY PO Last administered on 06/07/19at 08:24; Start 06/05/19 at 09:00 Diltiazem HCl (Cardizem 24hr Cd) 360 mg DAILY PO Last administered on 06/07/19at 08:30; Start 06/05/19 at 09:00 Atorvastatin Calcium (Lipitor) 80 mg QHS PO Last administered on 06/06/19at 22:02; Start 06/05/19 at 21:00 Acetaminophen (Tylenol) 650 mg PRN Q6HRS PRN PO pain/fever Last administered on 06/06/19at 05:14; Start 06/05/19 at 07:30 Heparin Sodium (Porcine) (HEPARIN for NUC MED) 100 unit 1X ONCE IV ; Start 06/05/19 at 14:45; Stop 06/05/19 at 14:46; Status DC Pantoprazole Sodium (Protonix) 40 mg DAILYAC PO Last administered on 06/07/19at 08:25; Start 06/07/19 at 07:30 Pantoprazole Sodium (Protonix) 40 mg 1X ONCE PO Last administered on 06/06/19at 10:31; Start 06/06/19 at 10:00; Stop 06/06/19 at 10:01; Status DC Ferrous Sulfate (Feosol) 325 mg DAILYWBKFT PO ; Start 06/07/19 at 14:00 Active Scripts Active Pantoprazole Sodium (Pantoprazole Sodium) 40 Mg Tablet. 40 Mg PO DAILYAC 60 Days Reported Cymbalta (Duloxetine Hcl) 20 Mg Capsule. 40 Mg PO DAILY Rosuvastatin Calcium 20 Mg Tablet 20 Mg PO DAILY Valsartan 160 Mg Tablet 160 Mg PO DAILY Diltiazem Xt (Diltiazem Hcl) 360 Mg Capsule.er 360 Mg PO DAILY Vitals/I & O Vital Sign - Last 24 Hours 06/06/19 06/06/19 06/06/19 06/07/19 15:00 19:10 20:00 03:10 Temp 97.5 97.4 97.9 97.5 97.4 97.9 Pulse 76 67 68 Resp 18 18 18 B/P (MAP) 141/80 (100) 129/52 (77) 132/53 (79) Pulse Ox 99 100 99 O2 Delivery Nasal Cannula Room Air Nasal Cannula Nasal Cannula O2 Flow Rate 2.0 2.0 2.0 06/07/19 06/07/19 06/07/19 06/07/19 07:00 08:00 08:30 11:00 Temp 97.7 97.8 97.7 97.8 Pulse 77 77 71 Resp 18 16 B/P (MAP) 118/70 (86) 118/70 137/67 (90) Pulse Ox 96 98 O2 Delivery Room Air Nasal Cannula Room Air O2 Flow Rate 2.0 Intake and Output 06/06/19 06/06/19 06/07/19 15:00 23:00 07:00 Intake Total 300 ml 300 ml 200 ml Balance 300 ml 300 ml 200 ml Hemodynamically unstable?: No Is patient in severe pain?: No Is NPO status required?: No CHINA LANGE MD Jun 07, 2019 14:22
[2019-06-07 15:00] VITALS: BP 132/67
[2019-06-07] MEDS: FERROUS SULFATE 325 MG TABLET. PO SCH (17:25)
[2019-06-07 19:15] VITALS: BP 136/62
[2019-06-07] MEDS: ATORVASTATIN CALCIUM 40 MG TABLET. PO SCH (21:04)
[2019-06-07] MEDS: METOPROLOL TART IMMED RELEASE 25 MG TABLET. PO SCH (21:05)
[2019-06-07 23:15] VITALS: BP 133/63
[2019-06-08 03:15] VITALS: BP 121/58
[2019-06-08 07:55] VITALS: BP 173/69
--- NOTE | 2019-06-08 08:42 | CARD ---
MR#: [id number] Date of Study: 06/07/2019 Ordering Physician: KYLE BABIN, Referring Physician: KYLE BABIN, Tech: Arlette Andujar APPROVED REPORT EXAM: Two-dimensional and M-mode echocardiogram with Doppler and color Doppler. Other Information Quality : AverageHR: 68bpm INDICATION COPD Arrhythmia Congestive Heart Failure RISK FACTORS Hypertension Hyperlipidemia Previous smoker 2D DIMENSIONS RVDd2.5 (2.9-3.5cm)Left Atrium(2D)3.0 (1.6-4.0cm) IVSd1.3 (0.7-1.1cm)Aortic Root(2D)2.6 (2.0-3.7cm) LVDd4.3 (3.9-5.9cm)LVOT Diameter1.9 (1.8-2.4cm) PWd1.2 (0.7-1.1cm)LVDs2.1 (2.5-4.0cm) FS (%) 52.5 %SV71.4 ml LVEF(%)83.8 (>50%) Aortic Valve AoV Peak Anthony.304.6cm/sAoV VTI56.6cm AO Peak GR.37.1mmHgLVOT VTI 38.15cm AO Mean GR.23mmHgAI P 1/2 [id number] Mitral Valve MV E Lyjjiaew682.7cm/sMV E Peak Gr.7mmHg MV DECEL [id number] A Nsovcpxg450.1cm/s MV E Mean Gr.3mmHgE/A Ratio0.9 TDI Lateral E' P. V5.66cm/sMedial E' P. V5.41cm/s E/Lateral E'18.0E/Medial E'18.8 Tricuspid Valve TR P. [id number]/sTR Peak Gr.38mmHg Pulmonary Vein S1 Tfuzbfhd24.6cm/sS2 Wsktxnja36.18cm/s D2 Erqqauuq26.2cm/sPVa [id number] LEFT VENTRICLE The left ventricle is normal size. There is mild to moderate concentric left ventricular hypertrophy. The left ventricular systolic function is normal. The Ejection Fraction is 65%. There is normal LV s egmental wall motion. Transmitral Doppler flow pattern is Grade I-abnormal relaxation pattern. RIGHT VENTRICLE The right ventricle is normal size. There is normal right ventricular wall thickness. The right ventr icular systolic function is normal. ATRIA The left atrium size is normal. The right atrium size is normal. The interatrial septum is intact wit h no evidence for an atrial septal defect or patent foramen ovale as noted on 2-D or Doppler imaging. AORTIC VALVE The aortic valve is calcified. Doppler and Color Flow revealed mild to moderate aortic regurgitation. Mild aortic stenosis. Maximum pressure gradient of 44 mmHg and mean pressure gradient of 23 mmHg. MITRAL VALVE The mitral valve is normal in structure and function. There is no evidence of mitral valve prolapse. Doppler and Color-flow revealed trace to mild mitral regurgitation. TRICUSPID VALVE The tricuspid valve is normal in structure and function. Doppler and Color Flow revealed trace tricus pid regurgitation with an estimated PAP of 41 mmHg. There is no tricuspid valve stenosis. PULMONIC VALVE The pulmonic valve is not well visualized. Doppler and Color Flow revealed no pulmonic valvular regur gitation. GREAT VESSELS The aortic root is normal in size. The ascending aorta is normal in size. The IVC is normal in size a nd collapses >50% with inspiration. PERICARDIAL EFFUSION There is no evidence of significant pericardial effusion. Critical Notification Critical Value: No <Conclusion> The left ventricular systolic function is normal. The Ejection Fraction is 65%. There is normal LV segmental wall motion. Transmitral Doppler flow pattern is Grade I-abnormal relaxation pattern. Mild aortic stenosis. Mild to moderate aortic regurgitation. Trace to mild mitral regurgitation. Trace tricuspid regurgitation with an estimated PAP of 41 mmHg. There is no evidence of significant pericardial effusion. Signed by : Glenn Deras, Electronically Approved : 06/08/2019 08:42:15
--- NOTE | 2019-06-08 09:38 | PDOC ---
Subjective: Subjective: Feels fine, no bleeding. Says she's had a normal SBCE in the past. Objective: Vital Signs: Vital Signs Date Time Temp Pulse Resp B/P (MAP) Pulse Ox O2 Delivery O2 Flow Rate FiO2 06/08/19 07:55 97.6 69 16 173/69 (103) 98 Nasal Cannula 2.0 97.6 Imaging: Echo 06/07 <Conclusion> The left ventricular systolic function is normal. The Ejection Fraction is 65%. There is normal LV segmental wall motion. Transmitral Doppler flow pattern is Grade I-abnormal relaxation pattern. Mild aortic stenosis. Mild to moderate aortic regurgitation. Trace to mild mitral regurgitation. Trace tricuspid regurgitation with an estimated PAP of 41 mmHg. There is no evidence of significant pericardial effusion. PE: GEN: NAD, eating toast LUNGS: wet cough HEART: RRR ABD: NABS, S/ND/NT NEURO/PSYCH: A & O 3 A/P: H/o GI bleeding - ?diverticular this time - recent workup at [facility] RUKHSANA Asymptomatic arrhythmia - possible outpt stress test -- Continue PPI and iron - discussed both with her. SBCE as outpt per [facility] recs. DC per primary. Hemodynamically unstable?: No Is patient in severe pain?: No Is NPO status required?: No PHILLIP BELLA Jun 08, 2019 09:38
[2019-06-08] MEDS: FERROUS SULFATE 325 MG TABLET. PO SCH (10:13)
[2019-06-08] MEDS: PANTOPRAZOLE 40 MG TABLET.DR. PO SCH (10:13)
[2019-06-08] MEDS: DULoxetine HCL 20 MG CAPSULE.DR PO SCH (10:13)
[2019-06-08] MEDS: METOPROLOL TART IMMED RELEASE 25 MG TABLET. PO SCH (10:13)
[2019-06-08 11:10] VITALS: BP 120/67
--- NOTE | 2019-06-08 11:50 | PDOC3 ---
Discharge Summary Visit Information Date of Admission: Jun 05, 2019 Date of Discharge: Jun 08, 2019 Admitting Diagnosis Comment: Acute precip drop hgb s/p BT (hgb 6)\ REctal bleed, diverticulosis, no itis HEme occult positive SNU resident (lora garsia) Dizziness, resolved non sustained vtach (6 beats), asymptomatic positive bleeding scan Good EF per echo Final Diagnosis Problems Medical Problems: (1) Acute kidney injury Status: Acute (2) Rectal bleeding Status: Acute Brief Hospital Course Allergies Allergies Coded Allergies Type Severity Reaction Last Updated Verified No Known Drug Allergies 11/12/18 No Vital Signs Vital Signs Date Time Temp Pulse Resp B/P (MAP) Pulse Ox O2 Delivery O2 Flow Rate FiO2 06/08/19 11:10 97.4 67 18 120/67 (84) 95 Nasal Cannula 2.0 97.4 Lab Results Laboratory Tests Test 06/07/19 03:20 White Blood Count 3.9 x10^3/uL (4.0-11.0) Red Blood Count 2.76 x10^6/uL (3.50-5.40) Hemoglobin 8.4 g/dL (12.0-15.5) Hematocrit 25.1 % (36.0-47.0) Mean Corpuscular Volume 91 fL (79-100) Mean Corpuscular Hemoglobin 30 pg (25-35) Mean Corpuscular Hemoglobin Concent 33 g/dL (31-37) Red Cell Distribution Width 15.2 % (11.5-14.5) Platelet Count 227 x10^3/uL (140-400) Neutrophils (%) (Auto) 56 % (31-73) Lymphocytes (%) (Auto) 26 % (24-48) Monocytes (%) (Auto) 12 % (0-9) Eosinophils (%) (Auto) 6 % (0-3) Basophils (%) (Auto) 1 % (0-3) Neutrophils # (Auto) 2.2 x10^3/uL (1.8-7.7) Lymphocytes # (Auto) 1.0 x10^3/uL (1.0-4.8) Monocytes # (Auto) 0.5 x10^3/uL (0.0-1.1) Eosinophils # (Auto) 0.2 x10^3/uL (0.0-0.7) Basophils # (Auto) 0.0 x10^3/uL (0.0-0.2) Sodium Level 138 mmol/L (136-145) Potassium Level 3.9 mmol/L (3.5-5.1) Chloride Level 104 mmol/L (98-107) Carbon Dioxide Level 30 mmol/L (21-32) Anion Gap 4 (6-14) Blood Urea Nitrogen 21 mg/dL (7-20) Creatinine 0.8 mg/dL (0.6-1.0) Estimated GFR (Cockcroft-Gault) 69.2 Glucose Level 83 mg/dL (70-99) Calcium Level 8.6 mg/dL (8.5-10.1) Iron Level 26 ug/dL (50-170) Total Iron Binding Capacity 291 ug/dL (250-450) Iron Saturation 9 % (15-34) Triglycerides Level 71 mg/dL (0-150) Cholesterol Level 108 mg/dL (0-200) LDL Cholesterol, Calculated 57 mg/dL (0-100) VLDL Cholesterol, Calculated 14 mg/dL (0-40) Non-HDL Cholesterol Calculated 71 mg/dL (0-129) HDL Cholesterol 37 mg/dL (40-60) Cholesterol/HDL Ratio 2.9 Vitamin B12 Level 796 pg/mL (247-911) Thyroid Stimulating Hormone (TSH) 7.514 uIU/mL (0.358-3.74) Brief Hospital Course Ms. Sanz is a 79 old white female, SNU resident twin indu came for rectakl bleed and found to have diverticulosis, DID NEED blood, THen on day of dc went to 6 beat run vtach, no sxs. Echo done, good results, She feels well, BP can run high, on rate controlling meds, can definitely inc in snu if needed., Full code Pt seen and examined Dw RN and pt and sw and case mx Discharge Information Condition at Discharge: Improved, Stable Disposition/Orders: Other (snu) Scheduled Diltiazem Hcl (Diltiazem Xt) 360 Mg Capsule.er, 360 MG PO DAILY for Hypertension, (Reported) Entered as Reported by: ALLISON CLARK on 11/13/18 0000 Last Action: Converted on 06/05/19 0730 by SAMY GAFFNEY MD Duloxetine Hcl (Cymbalta) 20 Mg Capsule.dr, 40 MG PO DAILY for DEPRESSION, (Reported) Entered as Reported by: Casandra Biggs on 06/05/19 0537 Last Action: Continued on 06/05/19729 by SAMY GAFFNEY MD Pantoprazole Sodium (Pantoprazole Sodium ) 40 Mg Tablet.dr, 40 MG PO DAILYAC for gi bleed for 60 Days, #60 Prescribed by: CHINA LANGE on 06/07/19 1103 Rosuvastatin Calcium (Rosuvastatin Calcium) 20 Mg Tablet, 20 MG PO DAILY for High Cholesterol, (Reported) Entered as Reported by: ALLISON CLARK on 11/13/18 0000 Last Action: Converted on 06/05/19729 by SAMY GAFFNEY MD Valsartan (Valsartan) 160 Mg Tablet, 160 MG PO DAILY for Hypertension, (Reported) Entered as Reported by: ALLISON CLARK on 11/13/18 0000 Last Action: Reviewed on 06/05/19536 by Casandra Biggs Hemodynamically unstable?: No Is patient in severe pain?: No Is NPO status required?: No CHINA LANGE MD Jun 08, 2019 11:50
--- NOTE | 2019-06-08 13:04 | NUR ---
SS following up with discharge planning. Discharge cancelled on 06/07/2019. New discharge order received for today. SS phoned and faxed discharge orders to [facility], ; fax [phone]. SS awaiting transportation time at this time. Pt will discharge today and return to [facility]. Pt and pt's RN notified.
--- NOTE | 2019-06-08 13:13 | PDOC ---
CARDIO Progress Notes Date and Time Date of Service 06/08/2019 Time of Evaluation 1300 Subjective Subjective: No Chest Pain, No shortness of breath, No Palpitations Vitals Vitals Vital Signs Date Time Temp Pulse Resp B/P (MAP) Pulse Ox O2 Delivery O2 Flow Rate FiO2 06/08/19 11:10 97.4 67 18 120/67 (84) 95 Nasal Cannula 2.0 97.4 Weight Weight [ ] Input and Output Intake and Output Intake and Output 06/08/19 07:00 Intake Total 840 ml Balance 840 ml Intake Oral 840 ml # Voids 4 Physical Exam HEENT: Neck Supple W Full Motion Chest: Symmetric LUNGS: Other (diminished bases) Heart: S1S2, RRR (SR), murmurs (3/6 MARY) Abdomen: Soft N/T Extremities: No Edema, No Calf Tenderness Neurology: alert, oriented, follow commands Assessment Assessment 1. Acute GI bleed: post transfusion. outpt SBCE per GI 2. Asymptomatic Arrhythmia: PAFIB and NSVT otherwise SR. Better with BB addition 3. Mild /MR: EF and WM nml 4. COPD: O2 dependent 5. Hx of nonobstructive CAD 6. HLP 7. LE PAD: S/P aortoiliac graft with small AAA. No claudication Recommendations 1. Not a candidate for NOAC with GI bleed. ASA for stroke prevention. 2. Continue with cardizem and metoprolol. 3. TTE today and reeval valvular disease 4. Continue statin 5. Consider outpt stress test once GI issues are resolved. 6. Follow up with Dr. Wong for outpt cardiology. Consider outpt [facility]. If Dr. Wong is no longer in practice then follow up with Dr. Deras. Discussed with KYLE ANDERSON APRN Jun 08, 2019 13:13
[2019-06-08] MEDS ORDERED: METO25TA4 PO (13:17)
[2019-06-08] MEDS ORDERED: DILT180C29 PO (13:17)
[2019-06-08] MEDS ORDERED: FERR325T72 PO (13:17)
--- NOTE | 2019-06-08 13:19 | SNU/HH DC ---
DISCHARGE ORDERS DISCHARGE INFORMATION: DISCHARGE DATE: Jun 07, 2019 FINAL DIAGNOSIS Problems Medical Problems: (1) Acute kidney injury Status: Acute (2) Rectal bleeding Status: Acute CONDITION ON DISCHARGE: Stable CODE STATUS: Code Status: Full ASSISTED: SNF STAY <30 DAYS: Yes HOSPICE: HOSPICE: No HOSPICE EVAL & TREAT: No LTAC: ADMIT TO LTAC: No POST DISCHARGE ORDERS: ACTIVITY ORDERS: Bedrest today DIET AFTER DISCHARGE: Cardiac CHECKS AFTER DISCHARGE: CHECKS AFTER DISCHARGE: Check blood press - daily, Check blood sugar, ac/hs FOLLOW-UP: PHYSICIAN FOLLOW-UP: avoid nsaids or asa if possible, GI bleed hx, now resolved ADDITIONAL FOLLOW-UP: cards dec cardziem to 180 mgs from 360, statin to cont, BB inc dose TREATMENT/EQUIPMENT ORDERS: Physical Therapy For: Evalulation/Treatment Occupational Therapy For: Evaluation/Treatment DISCHARGE MEDICATIONS: Home Meds Active Scripts Diltiazem Hcl (DILTIAZEM 24HR CD) 180 Mg Cap.er.24h, 180 MG PO DAILY for htn, #60 CAP.SR Prov:CHINA LANGE MD 06/08/19 Ferrous Sulfate (FEOSOL) 325 Mg Tablet, 325 MG PO DAILYWBKFT for swetha, #60 TAB Prov:CHINA LANGE MD 06/08/19 Metoprolol Tartrate (METOPROLOL TARTRATE) 25 Mg Tablet, 25 MG PO BID for htn, #60 TAB Prov:CHINA LANGE MD 06/08/19 Pantoprazole Sodium (PANTOPRAZOLE SODIUM ) 40 Mg Tablet.dr, 40 MG PO DAILYAC for gi bleed for 60 Days, #60 TAB.SR Prov:CHINA LANGE MD 06/07/19 Reported Medications Duloxetine Hcl (CYMBALTA) 20 Mg Capsule.dr, 40 MG PO DAILY for DEPRESSION, CAP 06/05/19 Rosuvastatin Calcium (Rosuvastatin Calcium) 20 Mg Tablet, 20 MG PO DAILY for High Cholesterol 11/13/18 Discontinued Reported Medications Valsartan (Valsartan) 160 Mg Tablet, 160 MG PO DAILY for Hypertension 11/13/18 Diltiazem Hcl (DILTIAZEM XT) 360 Mg Capsule.er, 360 MG PO DAILY for Hypertension 11/13/18 CHINA LANGE MD Jun 08, 2019 13:18
--- NOTE | 2019-06-08 15:32 | NUR ---
Patient discharged to custodial. Report called to Flavia at [facility]. IV discontinued. All belongings with patient. Discharge packet given to transportation maintenance worker. [facility] transport here to get patient. Patient assisted out in wheelchair.
== END 2019-06-08 16:17 | disposition home or self-care (01) | DRG 377 ==
LOC: ER 21:21 → 6 SOUTH 23:53
PROVIDERS: ADMIT Internal Medicine; ATTEND Internal Medicine
PROC: 30233N1 Transfusion of Nonautologous Red Blood Cells into Peripheral Vein, Percutaneous Approach (ICD-10-PCS; principal; 2019-06-04)
DX: K57.31 Diverticulosis of large intestine without perforation or abscess with bleeding (principal); E43 Unspecified severe protein-calorie malnutrition; N17.0 Acute kidney failure with tubular necrosis; I50.33 Acute on chronic diastolic (congestive) heart failure; I47.2 Ventricular tachycardia; J98.11 Atelectasis; R65.10 Systemic inflammatory response syndrome (SIRS) of non-infectious origin without acute organ dysfunction; Z68.1 Body mass index [BMI] 19.9 or less, adult; D62 Acute posthemorrhagic anemia; M48.56XA Collapsed vertebra, not elsewhere classified, lumbar region, initial encounter for fracture; E78.00 Pure hypercholesterolemia, unspecified; E78.5 Hyperlipidemia, unspecified; F03.90 Unspecified dementia, unspecified severity, without behavioral disturbance, psychotic disturbance, mood disturbance, and anxiety; F32.9 Major depressive disorder, single episode, unspecified; I11.0 Hypertensive heart disease with heart failure; I25.10 Atherosclerotic heart disease of native coronary artery without angina pectoris; I27.81 Cor pulmonale (chronic); I48.91 Unspecified atrial fibrillation; J44.9 Chronic obstructive pulmonary disease, unspecified; Z79.899 Other long term (current) drug therapy; Z87.891 Personal history of nicotine dependence; Z90.49 Acquired absence of other specified parts of digestive tract; Z90.710 Acquired absence of both cervix and uterus; Z99.81 Dependence on supplemental oxygen; F41.9 Anxiety disorder, unspecified; K21.9 Gastro-esophageal reflux disease without esophagitis; M19.90 Unspecified osteoarthritis, unspecified site; M85.88 Other specified disorders of bone density and structure, other site
CPT/HCPCS: 36415; 71045; 74176; 74177; 78278; 80048; 80053; 80061; 82274; 82607; 83540; 83550; 83735; 84443; 84484; 85007; 85014; 85018; 85025; 85610; 86850; 86900; 86901; 86920; 93005; 93306; 96360; 96361; 96374; A9560; J7030; P9016; Q9966; 99285-25; G0378

== ENCOUNTER 2020-01-20 15:23 | Inpatient (IN) | payer MEDICARE, OTHER ==
[~2020-01-20] VITALS: Ht 172.7 cm; Wt 54.0 kg
[~2020-01-20 15:23] MED LIST changes: +DILT180C29 PO; +DULO20CA PO; +FERR325T72 PO; +METO25TA4 PO; +PANT40TA77 PO
[2020-01-20 16:12] LABS: BASO % 0 % (0-3); EOS % 0 % (0-3); HEMOGLOBIN 7.6 g/dL (12.0-15.5); LYMPH # 0.8 x10^3/uL (1.0-4.8); LYMPH % 6 % (24-48); MEAN CORPUSCULAR HEMOGLOBIN 33 pg (25-35); MEAN CORPUSCULAR HGB CONC 33 g/dL (31-37); MEAN CORPUSCULAR VOLUME 101 fL (79-100); MONO # 0.6 x10^3/uL (0.0-1.1); MONO % 4 % (0-9); NEUT # 11.8 x10^3/uL (1.8-7.7); NEUT % 89 % (31-73); PLATELET COUNT 132 x10^3/uL (140-400); RED BLOOD COUNT 2.29 x10^6/uL (3.50-5.40); RED CELL DISTRIBUTION WIDTH 14.8 % (11.5-14.5); WHITE BLOOD COUNT 13.2 x10^3/uL (4.0-11.0)
[2020-01-20 16:19] LABS: CALCIUM 9.2 mg/dL (8.5-10.1); CREATININE 1.6 mg/dL (0.6-1.0); GFR 31.1; POTASSIUM 3.6 mmol/L (3.5-5.1)
[2020-01-20 16:20] LABS: PROTHROMBIN TIME PATIENT 14.4 SEC (11.7-14.0)
[2020-01-20 16:25] LABS: ALBUMIN/GLOBULIN RATIO 1.1 (1.0-1.7); TOTAL BILIRUBIN 0.4 mg/dL (0.2-1.0); TOTAL PROTEIN 5.8 g/dL (6.4-8.2)
--- NOTE | 2020-01-20 16:49 | PHYS DOC ---
Past Medical History Past Medical History: COPD, High Cholesterol, Hypertension, Other Additional Past Medical Histor: BILATERAL FEM POP BYPASS,HEART MURMUR Past Surgical History: Appendectomy, Cholecystectomy, Hysterectomy, Other Additional Past Surgical Histo: HEART CATH Smoking Status: Former Smoker Alcohol Use: Occasionally Drug Use: None General Adult EDM: Chief Complaint: ABDOMINAL PAIN HPI: HPI: Patient is a 79 year old female who was brought [facility] due to left lower abdominal pain, with blood in her stool. Symptoms started today. Patient denies any chest pain, no trouble breathing. Patient has history of anemia and rectal bleeding in the past. Patient is not on any blood thinner. Review of Systems: Review of Systems: Constitutional: Denies fever or chills. [] Eyes: Denies change in visual acuity. [] HENT: Denies nasal congestion or sore throat. [] Respiratory: Denies cough or shortness of breath. [] Cardiovascular: Denies chest pain or edema. [] GI: Positive for abdominal pain, positive for bloody stool : Denies dysuria. [] Musculoskeletal: Denies back pain or joint pain. [] Integument: Denies rash. [] Neurologic: Denies headache, focal weakness or sensory changes. [] Endocrine: Denies polyuria or polydipsia. [] Lymphatic: Denies swollen glands. [] Psychiatric: Denies depression or anxiety. [] Heart Score: Risk Factors: Risk Factors: DM, Current or recent (<one month) smoker, HTN, HLP, family history of CAD, obesity. Risk Scores: Score 0 - 3: 2.5% MACE over next 6 weeks - Discharge Home Score 4 - 6: 20.3% MACE over next 6 weeks - Admit for Clinical Observation Score 7 - 10: 72.7% MACE over next 6 weeks - Early Invasive Strategies Allergies: Allergies: Allergies Coded Allergies Type Severity Reaction Last Updated Verified No Known Drug Allergies 11/12/18 No Physical Exam: PE: Constitutional: Well developed, well nourished, mild acute distress, non-toxic appearance. [] HENT: Normocephalic, atraumatic, bilateral external ears normal, oropharynx moist, no oral exudates, nose normal. [] Eyes: PERRLA, EOMI, conjunctiva normal, no discharge. [] Neck: Normal range of motion, no tenderness, supple, no stridor. [] Cardiovascular: Sinus tachycardia, loud systolic heart murmur Lungs & Thorax: Bilateral breath sounds clear to auscultation [] Abdomen: Bowel sounds normal, there is tenderness to palpation in the left lower quad abdominal area, no rebound, no guarding. stool with melena color, no gross blood, Skin: Warm, dry, no erythema, no rash. [] Back: No tenderness, no CVA tenderness. [] Extremities: No tenderness, no cyanosis, no clubbing, ROM intact, no edema. [] Neurologic: Alert and oriented X 3, normal motor function, normal sensory function, no focal deficits noted. [] Psychologic: Affect normal, judgement normal, mood normal. [] Current Patient Data: Labs: Laboratory Tests Test 01/20/20 16:00 White Blood Count 13.2 x10^3/uL (4.0-11.0) H Red Blood Count 2.29 x10^6/uL (3.50-5.40) L Hemoglobin 7.6 g/dL (12.0-15.5) L Hematocrit 23.0 % (36.0-47.0) L Mean Corpuscular Volume 101 fL (79-100) H Mean Corpuscular Hemoglobin 33 pg (25-35) Mean Corpuscular Hemoglobin Concent 33 g/dL (31-37) Red Cell Distribution Width 14.8 % (11.5-14.5) H Platelet Count 132 x10^3/uL (140-400) L Neutrophils (%) (Auto) 89 % (31-73) H Lymphocytes (%) (Auto) 6 % (24-48) L Monocytes (%) (Auto) 4 % (0-9) Eosinophils (%) (Auto) 0 % (0-3) Basophils (%) (Auto) 0 % (0-3) Neutrophils # (Auto) 11.8 x10^3/uL (1.8-7.7) H Lymphocytes # (Auto) 0.8 x10^3/uL (1.0-4.8) L Monocytes # (Auto) 0.6 x10^3/uL (0.0-1.1) Eosinophils # (Auto) 0.0 x10^3/uL (0.0-0.7) Basophils # (Auto) 0.0 x10^3/uL (0.0-0.2) Platelet Estimate Pending Prothrombin Time 14.4 SEC (11.7-14.0) H Prothrombin Time INR 1.2 (0.8-1.1) H Activated Partial Thromboplast Time 26 SEC (24-38) Sodium Level 141 mmol/L (136-145) Potassium Level 3.6 mmol/L (3.5-5.1) Chloride Level 101 mmol/L (98-107) Carbon Dioxide Level 24 mmol/L (21-32) Anion Gap 16 (6-14) H Blood Urea Nitrogen 60 mg/dL (7-20) H Creatinine 1.6 mg/dL (0.6-1.0) H Estimated GFR (Cockcroft-Gault) 31.1 BUN/Creatinine Ratio 38 (6-20) H Glucose Level 186 mg/dL (70-99) H Calcium Level 9.2 mg/dL (8.5-10.1) Total Bilirubin 0.4 mg/dL (0.2-1.0) Aspartate Amino Transferase (AST) 41 U/L (15-37) H Alanine Aminotransferase (ALT) 24 U/L (14-59) Alkaline Phosphatase 64 U/L (46-116) Troponin I Quantitative 0.318 ng/mL (0.000-0.055) Total Protein 5.8 g/dL (6.4-8.2) L Albumin 3.0 g/dL (3.4-5.0) L Albumin/Globulin Ratio 1.1 (1.0-1.7) Lipase 195 U/L (73-393) Laboratory Tests 01/20/20 16:00 Laboratory Tests 01/20/20 16:00 Vital Signs: Vital Signs Date Time Temp Pulse Resp B/P (MAP) Pulse Ox O2 Delivery O2 Flow Rate FiO2 01/20/20 15:46 98.0 110 18 127/63 (84) 94 Room Air 98.0 EKG: EKG: EKG was done at 1542, heart rate of 114 beats per minutes, sinus tachycardia, no ST segment ovation. ST segment depression in II. Radiology/Procedures: Radiology/Procedures: [][facility] [address] [place] [address] IMAGING REPORT Signed PATIENT: SLADE SAABSINTIAIE ACCOUNT: [id number] : 1940 LOCATION: ER AGE: 79 SEX: F EXAM STATUS: PRE ER ORD. PHYSICIAN: MAKENZIE AHMADI DO REASON: ABDOMINAL PAIN PROCEDURE: CT ABDOMEN PELVIS WO CONTRAST Exam: CT of abdomen and pelvis without contrast INDICATION: Abdominal pain TECHNIQUE: Sequential axial images through the abdomen and pelvis obtained without IV contrast. Sagittal and coronal reformatted images were reconstructed from the axial data and reviewed. Comparisons: 06/04/2019 FINDINGS: Heart size is normal. No pericardial effusion. Strandy opacities at dependent portion lungs likely representing atelectasis. No pleural effusion. Evaluation of the solid organs is limited secondary to noncontrast technique. Liver, spleen, pancreas and adrenals are unremarkable. Gallbladder surgically absent. No perinephric inflammation or hydronephrosis. No renal or ureteral calculi are identified. Bladder is decompressed not well evaluated. Uterus is absent. No abnormal adnexal mass. Diverticulosis is noted in the sigmoid colon without evidence of acute diverticulitis. Remainder of the large and small bowel are unremarkable. Appendix is not identified. No free abdominal air or fluid. No obstruction. There is a infrarenal abdominal aortic aneurysm with aortobiiliac stent graft noted. No enlarged abdominal lymph nodes are identified. Impression deformity involving the L1 vertebral body with approximately 50 percent height loss. No suspicious osseous lesions. IMPRESSION: 1. There is a infrarenal abdominal aortic aneurysm with aortobiiliac stent graft. Aneurysm diameter measured at 4.5 cm. 2. Diverticulosis without evidence of acute diverticulitis 3. Compression deformity of L1 vertebral body with approximately 50 percent height loss, new when compared to study in May. Correlate with point tenderness. Exposure: One or more of the following in the visualized dose reduction techniques were utilized for this examination: 1. Automated exposure control 2. Adjustment of the MA and/or KV according to patient size 3. Use of iterative of reconstructive technique Electronically signed by: Olive Viera MD (01/20/2020 5:23 PM) [id number] DICTATED and SIGNED BY: OLIVE VIERA MD DATE: 01/20/20 1723 Course & Med Decision Making: Course & Med Decision Making Pertinent Labs and Imaging studies reviewed. (See chart for details) Patient was evaluated in the ER today due to abdominal pain and GI bleed. She was anemia. She was given blood transfusion. Discussed with Dr. Costello, ADMITTED TO ICU, GI CONSULT. Ana Disclaimer: Ana Disclaimer: This electronic medical record was generated, in whole or in part, using a voice recognition dictation system. Departure Departure Impression: Primary Impression: GI bleed Additional Impressions: Abdominal pain Anemia Disposition: ADMITTED INPATIENT Admitting Physician: Madi. Kong Condition: IMPROVED Referrals: NO PCP (PCP) Justicifation of Admission Dx: Justifications for Admission: Justification of Admission Dx: Yes (GI BLEED, ANEMIA) MAKENZIE AHMADI DO Jan 20, 2020 16:49
[2020-01-20 16:56] LABS: % BANDS 2 % (0-9); % LYMPHS 11 % (24-48); % MONOS 4 % (0-10); % SEGS 83 % (35-66); PLT ESTIMATE ADEQUATE (ADEQUATE)
[2020-01-20 16:57] LABS: ANISOCYTOSIS SLIGHT; SCHISTOCYTES OCC
--- NOTE | 2020-01-20 17:26 | RAD ---
Exam: CT of abdomen and pelvis without contrast INDICATION: Abdominal pain TECHNIQUE: Sequential axial images through the abdomen and pelvis obtained without IV contrast. Sagittal and coronal reformatted images were reconstructed from the axial data and reviewed. Comparisons: 06/04/2019 FINDINGS: Heart size is normal. No pericardial effusion. Strandy opacities at dependent portion lungs likely representing atelectasis. No pleural effusion. Evaluation of the solid organs is limited secondary to noncontrast technique. Liver, spleen, pancreas and adrenals are unremarkable. Gallbladder surgically absent. No perinephric inflammation or hydronephrosis. No renal or ureteral calculi are identified. Bladder is decompressed not well evaluated. Uterus is absent. No abnormal adnexal mass. Diverticulosis is noted in the sigmoid colon without evidence of acute diverticulitis. Remainder of the large and small bowel are unremarkable. Appendix is not identified. No free abdominal air or fluid. No obstruction. There is a infrarenal abdominal aortic aneurysm with aortobiiliac stent graft noted. No enlarged abdominal lymph nodes are identified. Impression deformity involving the L1 vertebral body with approximately 50 percent height loss. No suspicious osseous lesions. IMPRESSION: 1. There is a infrarenal abdominal aortic aneurysm with aortobiiliac stent graft. Aneurysm diameter measured at 4.5 cm. 2. Diverticulosis without evidence of acute diverticulitis 3. Compression deformity of L1 vertebral body with approximately 50 percent height loss, new when compared to study in May. Correlate with point tenderness. Exposure: One or more of the following in the visualized dose reduction techniques were utilized for this examination: 1. Automated exposure control 2. Adjustment of the MA and/or KV according to patient size 3. Use of iterative of reconstructive technique Electronically signed by: Olive Segura MD (01/20/2020 5:23 PM) [id number]
[2020-01-20] MEDS ORDERED: ONDANSETRON PF 4 MG/2 ML VIAL. IVP ONE (17:30)
[2020-01-20] MEDS ORDERED: MORPHINE SULFATE 4 MG/ML VIAL. IV ONE (17:30)
[2020-01-20 17:36] LABS: FECAL OB PT POSITIVE (NEG)
[2020-01-20] MEDS ORDERED: ONDANSETRON PF 4 MG/2 ML VIAL. IV PRN (18:00)
--- NOTE | 2020-01-20 18:18 | EKG ---
[facility] [address] [place] [address] Test Date: 2020-01-20 Test Time: 15:42:59 Pat Name: MIRELLA SAAB Department: Room: Gender: F Superintendent Service: : 1940 Requested By: MAKENZIE AHMADI Order Number: [id number] Reading MD: Measurements Intervals Pound Rate: 114 P: -46 NC: 156 QRS: -35 QRSD: 106 T: 124 QT: 354 QTc: 492 Interpretive Statements SINUS TACHYCARDIA COMPLEX(ES) WITH ABERRANT INTRAVENTRICULAR CONDUCTION ATRIAL PREMATURE COMPLEX(ES), BIGEMINY ABNORMAL LEFT AXIS DEVIATION R-S TRANSITION ZONE IN V LEADS DISPLACED TO THE RIGHT LEFT ANTERIOR FASCICULAR BLOCK INCOMPLETE RIGHT BUNDLE BRANCH BLOCK LVH WITH REPOLARIZATION ABNORMALITY ABNORMAL ECG RI6.02 No previous ECG available for comparison
[2020-01-20 18:41] VITALS: BP 125/52
--- NOTE | 2020-01-20 19:30 | NUR ---
Patient admitted to room 105 via cart at 1830 companied by ED RN; Patient settled in room per previous shift-- oriented to ICU routine, nursing call light, TV/Bed control and side rails elevation w/ bed alarm. Patient verbalizes understanding. Patient complains of lower abd. pain stating that "it was relieved by morphine in ED." Patient educated on verbal pain scale. See admission information/history to follow.
[2020-01-20 20:00] VITALS: BP 125/70
[2020-01-20] MEDS: PANTOPRAZOLE SODIUM IV DRIP 80 MG in IV NORMAL SALINE 100ML 100 ML IV SCH (20:00)
[2020-01-20] MEDS: IV NORMAL SALINE 1000ML BAG 1,000 ML IV SCH (20:00)
[2020-01-20] MEDS: MORPHINE SULFATE 2 MG/ML VIAL. IV PRN (20:12)
--- NOTE | 2020-01-20 20:20 | NUR ---
Paged Dr Combs, returned page, notified of consult, Dx, Hx, Abd pain, CBC results, CT Abd/Pelvis results, Protonix gtt, H/H Q6HRS and orders to transfuse PRBC if Hgb,7.0. RN to continue to monitor and call with change in condition and Dr Combs to see patient in am; no new orders.
[2020-01-20 22:00] VITALS: BP 120/71
[2020-01-20 23:00] VITALS: BP 120/71
[2020-01-21] VITALS (13 sets, daily range): BP systolic 55–134; BP diastolic 40–76
[2020-01-21] MEDS: MORPHINE SULFATE 2 MG/ML VIAL. IV PRN
[2020-01-21 00:45] LABS: HEMATOCRIT 22.7 % (36.0-47.0); HEMOGLOBIN 7.1 g/dL (12.0-15.5)
--- NOTE | 2020-01-21 01:30 | NUR ---
Patient appears to be sleeping but is extremely restless, when her name is called she does answer "huh" but does not follow any commands and is confused; SBP 89 and difficult to obtain, HR 98-104, midnight H/H 7.1/.7--Dr Costello paged. Dr Costello returned call, notified him of above and patient inability to sign Transfusion Consent secondary to confusion. Orders received to have 2 RNs sign for Emergent Transfusion consent and give 1 U PRBC.
--- NOTE | 2020-01-21 01:50 | NUR ---
Unit of PRNBs started, will document initial vital signs and 15min vital sign under transfusion but hourly vitals will continue to be documented under Vital Sign Intervention.
[2020-01-21 02:42] LABS: BASE EXCESS ABG -25 mmol/L (-3-3); HCO3 ABG 10 mmol/L (21-28); PO2 ABG 52 mmHg (65-108)
[2020-01-21] MEDS ORDERED: PROPOFOL 100 ML IV PRN (03:30)
[2020-01-21] MEDS ORDERED: MIDAZOLAM 100mg/100ml NS BAG 100 ML IV PRN (03:30)
[2020-01-21] MEDS: NOREPINEPHRINE VIAL 8 MG in IV DEXTROSE 5% 250 ML IV PRN ×2 (03:30→08:22)
[2020-01-21] MEDS: PANTOPRAZOLE SODIUM IV DRIP 80 MG in IV NORMAL SALINE 100ML 100 ML IV SCH (03:31)
[2020-01-21 03:32] LABS: PCO2 ABG 68 mmHg (35-46)
[2020-01-21 05:02] LABS: HEMATOCRIT 29.7 % (36.0-47.0); HEMOGLOBIN 9.1 g/dL (12.0-15.5); RED BLOOD COUNT 2.82 x10^6/uL (3.50-5.40); RED CELL DISTRIBUTION WIDTH 16.4 % (11.5-14.5); WHITE BLOOD COUNT 10.1 x10^3/uL (4.0-11.0)
--- NOTE | 2020-01-21 05:06 | RAD ---
KUB, PORTABLE SUPINE CHEST 1V Clinical Indication: Reason: OG and ETT placement Comparison: AP chest June 04, 2019. Findings: Endotracheal tube tip is 4.4 cm superior to the harriett. Enteric tube tip is in the proximal stomach. Atherosclerotic thoracic aorta. Cardiac size upper limits of normal. Small calcified granuloma medial right lung base. Lungs are clear. There is no pneumothorax. No pleural effusion is appreciated. No acute bone abnormality. Aortobiiliac endovascular stent. Cholecystectomy clips. Scattered air in bowel. No dilated small bowel. No obvious organomegaly. No evidence of bowel obstruction. IMPRESSION: Endotracheal and enteric tubes are in appropriate position. Electronically signed by: Delfin Frank MD (01/21/2020 5:04 AM) [facility]
[2020-01-21 05:27] LABS: ALBUMIN 2.2 g/dL (3.4-5.0); ALBUMIN/GLOBULIN RATIO 0.9 (1.0-1.7); CALCIUM 8.7 mg/dL (8.5-10.1); CREATININE 1.9 mg/dL (0.6-1.0); GFR 25.5; MAGNESIUM 2.8 mg/dL (1.8-2.4); POTASSIUM 4.7 mmol/L (3.5-5.1); TOTAL BILIRUBIN 0.9 mg/dL (0.2-1.0); TOTAL PROTEIN 4.7 g/dL (6.4-8.2)
[2020-01-21] MEDS ORDERED: DEXTROSE 50% 25 GM / 50ML DISP.SYRIN. IV ONE ×3 (05:33→11:02)
[2020-01-21] MEDS: DEXTROSE 50% 25 GM / 50ML DISP.SYRIN. IV ONE ×2 (05:40→05:41)
--- NOTE | 2020-01-21 06:15 | NUR ---
Patient had not voided since admit and since patient now confused, 16Frenceh Folaey cath inserted after explanation to patient. A #16 Frenceh Lee cath was inserted using sterile technique with immediate return of cloudy yellow urine with sediment at 0230. Patient tolerated procedure well but by the end patient was unresponsive and this RN was unable to obtain a BP or pulse but heart tones were auscultated. PRBCs continue to be infusing; IVF increased for bolus and Levophed started. ABGs drawn and resulted pH 6.80, pCO2 67.7, pO2 52.2, HCO3 10.3, and BE -25.4. Dr Pravin foley, recturned page at 0245 and notified of above and patients low BP, Levophed started and patient receiving bolus NC--orders received to have BLANKET MAKER intubate patient, check Lactic acid and LDH. Patient intubated by ALICIA Jennings without sedation secondary to unresponsiveness at 0305 with 7.5 ETT 22 at right lip; bilat equal lung sounds auscultated and ETCO2 detector had positive colr change. Continued to be unable to obtain BP and Levophed titrated by increment to 0.6MCG/KG/MIN. AT 0330 #18 OG inserted without difficulty and immediate return of green gastric contents; CXR completed for ETT placement and KUB done for OG placement. RT unable to obtain ABGs one hour after intubation and patient still does not have BP per NIBP. Arterial line placed by ALICIA Jennings and attatched to transducer; good wave form and good return of blood. AT 0600 lab called critical result of glucose 23 and CO2 10, ABGs completed and resulted pH7.09, 2 25.6, pO2 401.2, JCO3 7.6, BE -20.6. Low glucose treated with 1 amp D50 per portocol and rechecked 15 min later resulting 154. Dr Bueno here, notified of consult, events/intubation, vent settings, ABG results, IVF, and Levo dose. Orders received to increase resp rate to 24, decrease FiO2 to 50%, recheck ABGs in am, and give 500CC NS bolus.
--- NOTE | 2020-01-21 06:34 | PDOC ---
Provider Note Date of Service: DATE: 01/21/20 TIME: 06:27 Provider Note Anesthesia Note: Intubation requested for patient in respiratory failure. 7.5 OET placed without difficulty using 3 Louisa laryngoscope. Cords easily viewed. Cuff inflated tube secured at 22 cm at the lip. BSBE Positive color change on EtCO2 indicator, placed on ventilator, Chest XRay Arterial Line placement. 20 ga Arrow cath placed in left radial artery, sterile technique using chlorhexidene prep. Justifications for Admission Other Justification [facility] Jan 21, 2020 06:34
[2020-01-21] MEDS ORDERED: IV NORMAL SALINE 500ML BAG 500 ML IV ONE (07:00)
--- NOTE | 2020-01-21 07:30 | NUR ---
Paged Dr Combs, returned page, notified of this am events and am H/H. No new orders at this time.
[2020-01-21 07:50] LABS: BASE EXCESS ABG -21 mmol/L (-3-3); HCO3 ABG 8 mmol/L (21-28); PCO2 ABG 26 mmHg (35-46); PO2 ABG 401 mmHg (65-108); SAT O2 ABG 99 % (92-99)
[2020-01-21] MEDS: IV NORMAL SALINE 1000ML BAG 1,000 ML IV SCH (08:10)
--- NOTE | 2020-01-21 08:11 | CONS ---
DATE OF CONSULTATION: 01/21/2020 REASON FOR CONSULTATION: I was asked to see this 79-year-old lady for acute respiratory failure, hypovolemic shock. HISTORY OF PRESENT ILLNESS: The patient is currently on the ventilator. She is not able to give me any information. All of the information was obtained from chart and nursing staff. She is a shelter resident. She was brought to the Emergency Room for abdominal pain. She was started on IV fluid and was given 1 unit of blood. She became very agitated. An ABG was done, which did show pH 6.8, pCO2 of 68, pO2 of 52, bicarbonate 10. She was intubated by anesthesia. She is currently on the ventilator. She is on Versed, fentanyl, Protonix drip, and Levophed. An art line was placed and now her blood pressure is 110/60. She does not have any ET tube secretion. An OG is in place. There is no bloody secretion. She has history of GI bleed. PAST MEDICAL HISTORY: Diastolic CHF, GI bleeding, COPD, oxygen dependent, paroxysmal atrial fibrillation, hypertension, aortic stenosis, mitral regurgitation, COPD, coronary artery disease, hyperlipidemia, GI bleeding. ALLERGIES: No known drug allergies. MEDICATIONS: Currently, she is on Versed drip, fentanyl drip, Levophed, and Protonix drip. SOCIAL HISTORY: Positive for smoking, details are not known. She is a shelter resident. FAMILY HISTORY: Hypertension per chart. REVIEW OF SYSTEMS: Unable to obtain. The patient is intubated and sedated. PHYSICAL EXAMINATION: GENERAL: This is an elderly lady. VITAL SIGNS: Her O2 saturation is 100% on 100% FiO2, blood pressure 110/60, respiratory rate 22, heart rate 100, temperature 97.6. HEENT: Normocephalic, atraumatic. Pupils are equal, round, and reactive to light. She is orally intubated. Nose is clear. NECK: There is no lymphadenopathy or thyromegaly. CARDIOVASCULAR: Regular rate and rhythm. PMI is nondisplaced. CHEST: Inspection is normal. LUNGS: There are diminished breath sounds, dullness at the left base. ABDOMEN: Slightly distended. Bowel sounds diminished. There is no mass. EXTREMITIES: There is no edema. LYMPHATICS: There is no lymphadenopathy. NEUROLOGIC: Sedated on the ventilator. SKIN: Pale. LABORATORY DATA: I reviewed the following lab data; chest x-ray shows ET tube is in good position. There is mild left atelectasis/effusion. WBC 10.1, hemoglobin 9.1, platelets 85. Sodium 142, potassium 4.7, chloride 104, CO2 of 10, BUN 66, creatinine 1.9. Lactic acid 20.2, AST 3378, ALT 2684. Troponin 0.097, repeat 1.66. ABG as mentioned as above. Repeat ABG on assist control rate of 22, tidal volume of 450, FiO2 of 100%, PEEP of 5, pH of 7.09, pCO2 of 25, pO2 of 401. IMPRESSION: 1. [id number] respiratory failure, multifactorial in etiology. 2. Abnormal chest x-ray. 3. Hypovolemic shock. 4. Gastrointestinal bleeding ? source. 5. Chronic obstructive pulmonary disease, oxygen dependent. 6. Hypertension. 7. Anemia. 8. History of diastolic congestive heart failure. 9. History of paroxysmal atrial fibrillation. 10. Coronary artery disease. 11. Acute kidney injury. 12. Severe metabolic acidosis. 13. Elevated troponin. PLAN AND RECOMMENDATIONS: 1. Titrate FiO2 to keep O2 saturation more than 94%. 2. Continue ventilator support. Vent setting was reviewed. ABG was reviewed. I will increase rate to 24. 3 Continue vent support until the patient is more stable. 4. Status post PRBC 1 unit. fu H/H 5. Continue Protonix drip. 6. Agree with GI consult. 7. SCDs for DVT prophylaxis. 8. I will give her normal saline 500 mL bolus now. 9. Pressors to keep MAP more than 65. 10. Discussed with RN and RT. 11. The patient is critically ill. Critical care time 30 minutes without overlap. Thank you very much for allowing me to participate in care of this very nice lady. AALIYAH DICKEY M.D. : REBECCA/isabel JOB#: [id number] / [id number] INGE
[2020-01-21] MEDS ORDERED: IV DEXTROSE 5% 1,000 ML IV SCH (08:45)
[2020-01-21] MEDS ORDERED: IV NORMAL SALINE 1000ML BAG 1,000 ML IV ONE (09:00)
--- NOTE | 2020-01-21 09:01 | HP ---
ADMIT DATE: 01/20/2020 HISTORY OF PRESENT ILLNESS: The patient is a 79-year-old female patient, a resident at [facility], who was brought to the Emergency Room of [facility] with a complaint of left lower abdominal pain with blood in the stool. Her symptoms started today. She denied any chest pain or shortness of breath. She has had history before of GI bleed that was felt to be diverticular before. She is not on any blood thinner. On arrival to the Emergency Room, she was slightly tachycardic, but she was normotensive. Her initial lab work on arrival showed her hemoglobin to be 7.6 and hematocrit of 23. Her chemistry showed her BUN is 60, creatinine 1.6 and she was admitted to the ICU. She did receive 2 units of packed RBCs to continue close monitoring. We did consult the driveway attendant as well as the all source intelligence. PAST MEDICAL HISTORY: Significant for chronic obstructive pulmonary disease, hyperlipidemia, hypertension, abdominal aortic aneurysm, peripheral arterial disease, status post femoral popliteal bypass, aortic stenosis, pulmonary hypertension. PAST SURGICAL HISTORY: Significant for cholecystectomy, hysterectomy, ventral hernia repair and abdominal aortic aneurysm with intraluminal stenting. FAMILY HISTORY: Noncontributory. SOCIAL HISTORY: She is a resident at [facility]. She continued to smoke; however, does not drink alcohol or use any recreational drugs. REVIEW OF SYSTEMS: As per history of present illness. ALLERGIES: She has no known drug allergies. MEDICATIONS: She is currently on following medications: Ferrous sulfate 325 mg once a day, Crestor 20 mg once a day, metoprolol tartrate 25 mg twice a day, diltiazem 180 mg once a day, duloxetine 40 mg once a day, Protonix 40 mg once a day. PHYSICAL EXAMINATION: GENERAL: On arrival to the Emergency Room, she was pale, but no jaundice, cyanosis or thyromegaly. No jugular venous distention. No limb edema. VITAL SIGNS: Her heart rate was 110, blood pressure was 127/63, temperature was 98, respiratory rate was 18 and oxygen saturation was 94% on room air. HEAD, EYES, EARS, NOSE AND THROAT: Normocephalic, atraumatic. NECK: Supple. HEART: Showed normal first and second heart sounds with no gallop, rub or murmur. CHEST: Showed central trachea, equally reduced expansion, reduced air entry, vesicular sounds. No crepitation or rhonchi. She apparently has some tenderness on palpation to the left lower quadrant abdominal area, but no rebound. Bowel sounds were normal. EXTREMITIES: Showed no clubbing, cyanosis or edema. NEUROLOGIC: She was demented, but without any obvious lateralizing sign. LABORATORY DATA: His lab work on arrival to the Emergency Room showed a white cell count 13,200, hemoglobin 7.6, hematocrit 23, MCV 101 and platelet count of 132,000. Her chemistry showed a serum sodium 141, potassium 3.6, chloride 101, bicarbonate 24, anion gap of 16, BUN 60, creatinine 1.6, estimated GFR was 31 mL per minute. Her glucose was 186, calcium was 9.2. Total bilirubin, AST, ALT, alkaline phosphatase were normal. Her troponin was 0.018. Total protein was 5.8, albumin 3. Lipase was 195. Her prothrombin time was 14.4, INR 1.2, APTT was 26. The patient has received 2 unit of blood in the Emergency Room and was admitted to the ICU where she was continued on IV fluid and Protonix drip. As she was hypotensive, she was started on Levophed. ASSESSMENT: Gastrointestinal bleed. The patient has also multiple other medical problems including chronic obstructive pulmonary disease, chronic hypoxic respiratory failure. She continues to unfortunately smoke. PLAN: Plan is to monitor her H and H and transfuse her as needed. Continue with IV fluid and continue with Levophed to maintain mean arterial pressure of 65 or more. KATY GARCIA MD DR: DES/isabel JOB#: [id number] / [id number]
--- NOTE | 2020-01-21 09:09 | PN ---
DATE: 01/21/2020 SUBJECTIVE: The patient was admitted yesterday with abdominal pain and melena stool. Apparently, she became unresponsive around 3:00 in the morning and her blood gases done showed that she is extremely acidotic with a pH of 6.8, pCO2 of 68, bicarb of only 10. She was intubated and mechanically ventilated. She is sedated with propofol, midazolam, and fentanyl. She continued on epinephrine. PHYSICAL EXAMINATION: GENERAL: When I saw her this morning, she was extremely pale. No jaundice, cyanosis, or thyromegaly. No jugular venous distention. No lower limb edema. VITAL SIGNS: Her heart rate was 96, blood pressure was 104/70, temperature was 97.8, respiratory rate 21, and oxygen saturation was 100% on FiO2 of 50%. HEAD, EYES, EARS, NOSE, AND THROAT: Showed normocephalic, atraumatic. She has orotracheal and orogastric tube; however, no blood was drained. NECK: Supple. HEART: Showed normal first and second heart sounds. No gallop or murmur. CHEST: Showed central trachea, equally reduced expansion, reduced air entry, vesicular sounds. No crepitation or rhonchi. ABDOMEN: Scaphoid, soft, tenderness in the left lower quadrant. NEUROLOGIC: She is heavily sedated, but moves her extremities spontaneously. LABORATORY DATA: Her lab work this morning showed that her white cell count is 10,000; hemoglobin 9.1; hematocrit 29.7; MCV 105; and platelet count of 85,000. Her chemistry this morning showed a serum sodium 142, potassium 4.7, chloride 104, bicarbonate 10, anion gap of 28, BUN 66, creatinine 1.9, estimated GFR was 25 mL per minute. Her glucose was extremely low at 23. Lactic acid was 20 and her calcium was 8.7, magnesium was 2.8. Total bilirubin and alkaline phosphatase are normal. AST and ALT are elevated, most likely due to shock liver. Her LDH is extremely high at 3976. Her troponin was 1.665 and total protein was 4.7, albumin was 2.2. Repeat blood gases showed a pH of 7.09, pCO2 of 25, pO2 of 401. Bicarbonate was 7.6. Her oxygen saturation was 99%. ASSESSMENT: 1. Acute hypoxic respiratory failure requiring intubation and mechanical ventilation with hypovolemic shock. 2. Gastrointestinal bleeding. 3. Metabolic acidosis with markedly elevated LDH, likely due to bowel ischemia. 4. Shock liver, markedly elevated troponin and rising from 0.977-1.665. PLAN: My plan is aggressive fluid resuscitation. She clearly has severe metabolic acidosis with lactic acid of 20 and LDH of 3976, most likely indicating that she has an ischemic bowel. She also has myocardial infarction. We have already consulted the warp drawer, the recreation therapy teacher as well as the friction saw operator. Her overall prognosis seems to be extremely poor and she has multisystem failure. KATY GARCIA MD DR: DES/isabel JOB#: [id number] / [id number]
--- NOTE | 2020-01-21 09:15 | EKG ---
[facility] [address] [place] [address] Test Date: 2020-01-21 Test Time: 09:05:32 Pat Name: MIRELLA SAAB Department: Room: [facility] 1 Gender: F Finance Administrator: SANDIP : 1940 Requested By: KATY GARCIA Order Number: [id number] Reading MD: Sanket Dove MD Measurements Intervals Robbins Rate: 99 P: -43 RI: 184 QRS: -38 QRSD: 98 T: 116 QT: 342 QTc: 438 Interpretive Statements SR LVH Electronically Signed On 01-23-2020 13:57:59 CDT by Sanket Dove MD
[2020-01-21] MEDS ORDERED: CALCIUM CHLORIDE 1,000 MG/10 ML DISP.SYRIN ONE (11:00)
[2020-01-21] MEDS ORDERED: SODIUM BICARB ADULT 8.4% 50 MEQ/50 ML DISP.SYRIN. ONE (11:00)
[2020-01-21] MEDS ORDERED: AMIODARONE 150 MG/3 ML VIAL ONE (11:00)
[2020-01-21] MEDS ORDERED: EPINEPHrine SYRINGE 1 MG/10 ML SYRINGE ONE (11:00)
--- NOTE | 2020-01-21 11:00 | PDOC2 ---
CONSULT Date of Consult Date of Consult DATE: 01/21/20 TIME: 10:54 Reason for Consult Reason for Consult: Abdominal pain, anemia History of Present Illness Reason for Visit: This is a 79-year-old female who was transferred here from her intermediate. She has a complaint of lower abdominal pain and was found to be anemic and acidotic. There is no history of active bleeding recently including no melena or hematochezia but apparently has had previous GI bleeding. Initially her blood pressure was low and her lactic acid was elevated but her anemia was not significant enough to have provoked these findings. She has a history of atherosclerotic disease and previous aortic aneurysm with stent placement. Her initial labs also suggest acute hypokalemia and possible ischemic shock with dramatic elevations in transaminases and lactic acid. We were asked to see her regarding these issues. Overnight she was reasonably stable but has deteriorated this morning with hypotension, requirement for intubation. Past Medical History Cardiovascular: AFIB, CAD, CHF, HTN, Hyperlipidemia, Aortic stenosis, Valve insufficiency, Other Pulmonary: COPD, Pneumonia CENTRAL NERVOUS SYSTEM: Dementia GI: Diverticulosis, GERD, GI bleed Heme/Onc: Anemia NOS Hepatobiliary: No pertinent hx Psych: No pertinent hx Musculoskeletal: Osteoarthritis Infectious disease: No pertinent hx Renal/: Urinary Incontinence Endocrine: Osteopenia Past Surgical History Past Surgical History: Appendectomy, Cholecystectomy, Hernia Repair, Hystere ctomy, Other Social History ALCOHOL: none Drugs: None Lives: Prison Current Problem List Problem List Problems Medical Problems: (1) Abdominal pain Status: Acute (2) Anemia Status: Acute Current Medications Current Medications Current Medications Morphine Sulfate (Morphine Sulfate) 4 mg 1X ONCE IV Last administered on 01/20/20at 17:37; Start 01/20/20 at 17:30; Stop 01/20/20 at 17:31; Status DC Ondansetron HCl (Zofran) 4 mg 1X ONCE IVP Last administered on 01/20/20at 17:37; Start 01/20/20 at 17:30; Stop 01/20/20 at 17:31; Status DC Ondansetron HCl (Zofran) 4 mg PRN Q8HRS PRN IV NAUSEA/VOMITING; Start 01/20/20 at 18:00; Stop 01/21/20 at 17:59 Morphine Sulfate (Morphine Sulfate) 2 mg PRN Q2HR PRN IV PAIN Last administered on 01/21/20at 00:00; Start 01/20/20 at 18:00; Stop 01/21/20 at 04:00; Status DC Sodium Chloride 1,000 ml @ 75 mls/hr [id number] IV Last administered on 01/21/20at 08:10; Start 01/20/20 at 18:00; Stop 01/21/20 at 17:59 Pantoprazole Sodium 80 mg/ Sodium Chloride 100 ml @ 10 mls/hr Q10H IV Last administered on 01/21/20at 03:31; Start 01/20/20 at 18:30; Stop 01/23/20 at 18:29 Norepinephrine Bitartrate 8 mg/ Dextrose 258 ml @ 9.83 mls/hr CONT PRN IV PER PROTOCOL Last administered on 01/21/20at 08:22; Start 01/21/20 at 02:30 Fentanyl Citrate 30 ml @ 0 mls/hr CONT PRN IV SEE PROTOCOL Last administered on 01/21/20at 04:38; Start 01/21/20 at 03:30 Propofol 100 ml @ 0 mls/hr CONT PRN IV SEE PROTOCOL; Start 01/21/20 at 03:30 Midazolam HCl 100 ml @ 0 mls/hr CONT PRN IV SEE PROTOCOL Last administered on 01/21/20at 03:42; Start 01/21/20 at 03:30 Dextrose (Dextrose 50%-Water Syringe) 25 gm STK-MED ONCE IV ; Start 01/21/20 at 05:33; Stop 01/21/20 at 05:34; Status DC Dextrose (Dextrose 50%-Water Syringe) 25 gm 1X ONCE IV Last administered on 01/21/20at 05:41; Start 01/21/20 at 06:00; Stop 01/21/20 at 06:01; Status DC Sodium Chloride 500 ml @ 500 mls/hr 1X ONCE IV ; Start 01/21/20 at 07:00; Stop 01/21/20 at 07:59; Status DC Sodium Chloride 1,000 ml @ 1,000 mls/hr 1X ONCE IV ; Start 01/21/20 at 09:00; Stop 01/21/20 at 09:59; Status DC Dextrose 1,000 ml @ 75 mls/hr [id number] IV Last administered on 01/21/20at 08:56; Start 9/12/20 at 08:45 Active Scripts Active Diltiazem 24HR Cd (Diltiazem Hcl) 180 Mg Cap.er.24h 180 Mg PO DAILY Feosol (Ferrous Sulfate) 325 Mg Tablet 325 Mg PO [id number] Metoprolol Tartrate 25 Mg Tablet 25 Mg PO BID Pantoprazole Sodium (Pantoprazole Sodium) 40 Mg Tablet.dr 40 Mg PO DAILYAC 60 Days Reported Cymbalta (Duloxetine Hcl) 20 Mg Capsule.dr 40 Mg PO DAILY Rosuvastatin Calcium 20 Mg Tablet 20 Mg PO DAILY Allergies Allergies: Coded Allergies: No Known Drug Allergies (Unverified , 11/12/18) Physical Exam General: Other (Intubated, nonresponsive.) HEENT: PERRLA Lungs: Other (On ventilator, a few rhonchi noted) Heart: Regular rate Abdomen: Soft (Decreased bowel sounds, no obvious masses.) Extremities: No clubbing Vitals VITALS Vital Signs Date Time Temp Pulse Resp B/P (MAP) Pulse Ox O2 Delivery O2 Flow Rate FiO2 01/21/20 10:00 98 26 95/70 (78) 97 Ventilator 01/21/20 07:00 97.9 97.9 01/21/20 06:00 22.0 Labs Labs Laboratory Tests Test 01/20/20 16:00 01/20/20 17:27 01/21/20 00:40 01/21/20 02:35 White Blood Count 13.2 x10^3/uL (4.0-11.0) Red Blood Count 2.29 x10^6/uL (3.50-5.40) Hemoglobin 7.6 g/dL (12.0-15.5) 7.1 g/dL (12.0-15.5) Hematocrit 23.0 % (36.0-47.0) 22.7 % (36.0-47.0) Mean Corpuscular Volume 101 fL (79-100) Mean Corpuscular Hemoglobin 33 pg (25-35) Mean Corpuscular Hemoglobin Concent 33 g/dL (31-37) 31 g/dL (31-37) Red Cell Distribution Width 14.8 % (11.5-14.5) Platelet Count 132 x10^3/uL (140-400) Neutrophils (%) (Auto) 89 % (31-73) Lymphocytes (%) (Auto) 6 % (24-48) Monocytes (%) (Auto) 4 % (0-9) Eosinophils (%) (Auto) 0 % (0-3) Basophils (%) (Auto) 0 % (0-3) Neutrophils # (Auto) 11.8 x10^3/uL (1.8-7.7) Lymphocytes # (Auto) 0.8 x10^3/uL (1.0-4.8) Monocytes # (Auto) 0.6 x10^3/uL (0.0-1.1) Eosinophils # (Auto) 0.0 x10^3/uL (0.0-0.7) Basophils # (Auto) 0.0 x10^3/uL (0.0-0.2) Segmented Neutrophils % 83 % (35-66) Band Neutrophils % 2 % (0-9) Lymphocytes % 11 % (24-48) Monocytes % 4 % (0-10) Platelet Estimate Adequate (ADEQUATE) Anisocytosis Slight Schistocytes Occ Prothrombin Time 14.4 SEC (11.7-14.0) Prothromb Time International Ratio 1.2 (0.8-1.1) Activated Partial Thromboplast Time 26 SEC (24-38) Sodium Level 141 mmol/L (136-145) Potassium Level 3.6 mmol/L (3.5-5.1) Chloride Level 101 mmol/L (98-107) Carbon Dioxide Level 24 mmol/L (21-32) Anion Gap 16 (6-14) Blood Urea Nitrogen 60 mg/dL (7-20) Creatinine 1.6 mg/dL (0.6-1.0) Estimated GFR (Cockcroft-Gault) 31.1 BUN/Creatinine Ratio 38 (6-20) Glucose Level 186 mg/dL (70-99) Calcium Level 9.2 mg/dL (8.5-10.1) Total Bilirubin 0.4 mg/dL (0.2-1.0) Aspartate Amino Transf (AST/SGOT) 41 U/L (15-37) Alanine Aminotransferase (ALT/SGPT) 24 U/L (14-59) Alkaline Phosphatase 64 U/L (46-116) Troponin I Quantitative 0.318 ng/mL (0.000-0.055) 0.977 ng/mL (0.000-0.055) Total Protein 5.8 g/dL (6.4-8.2) Albumin 3.0 g/dL (3.4-5.0) Albumin/Globulin Ratio 1.1 (1.0-1.7) Lipase 195 U/L (73-393) Stool Occult Blood Positive (NEG) Arterial Blood pH 6.80 (7.35-7.45) Arterial Blood pCO2 at Patient Temp 68 mmHg (35-46) Arterial Blood pO2 at Patient Temp 52 mmHg (65-108) Arterial Blood HCO3 10 mmol/L (21-28) Arterial Blood Base Excess -25 mmol/L (-3-3) FiO2 Test 01/21/20 03:00 01/21/20 04:58 01/21/20 05:00 01/21/20 06:00 Lactic Acid Level 20.2 mmol/L (0.4-2.0) White Blood Count 10.1 x10^3/uL (4.0-11.0) Red Blood Count 2.82 x10^6/uL (3.50-5.40) Hemoglobin 9.1 g/dL (12.0-15.5) Hematocrit 29.7 % (36.0-47.0) Mean Corpuscular Volume 105 fL (79-100) Mean Corpuscular Hemoglobin 32 pg (25-35) Mean Corpuscular Hemoglobin Concent 31 g/dL (31-37) Red Cell Distribution Width 16.4 % (11.5-14.5) Platelet Count 85 x10^3/uL (140-400) Sodium Level 142 mmol/L (136-145) Potassium Level 4.7 mmol/L (3.5-5.1) Chloride Level 104 mmol/L (98-107) Carbon Dioxide Level 10 mmol/L (21-32) Anion Gap 28 (6-14) Blood Urea Nitrogen 66 mg/dL (7-20) Creatinine 1.9 mg/dL (0.6-1.0) Estimated GFR (Cockcroft-Gault) 25.5 BUN/Creatinine Ratio 35 (6-20) Glucose Level 23 mg/dL (70-99) Calcium Level 8.7 mg/dL (8.5-10.1) Magnesium Level 2.8 mg/dL (1.8-2.4) Total Bilirubin 0.9 mg/dL (0.2-1.0) Aspartate Amino Transf (AST/SGOT) 3378 U/L (15-37) Alanine Aminotransferase (ALT/SGPT) 2684 U/L (14-59) Alkaline Phosphatase 78 U/L (46-116) Lactate Dehydrogenase 3976 U/L (81-234) Total Protein 4.7 g/dL (6.4-8.2) Albumin 2.2 g/dL (3.4-5.0) Albumin/Globulin Ratio 0.9 (1.0-1.7) Troponin I Quantitative 1.665 ng/mL (0.000-0.055) Glucose (Fingerstick) 154 mg/dL (70-99) Test 01/21/20 08:38 Glucose (Fingerstick) 74 mg/dL (70-99) Laboratory Tests Test 01/20/20 16:00 01/20/20 17:27 01/21/20 00:40 01/21/20 02:35 White Blood Count 13.2 x10^3/uL (4.0-11.0) Red Blood Count 2.29 x10^6/uL (3.50-5.40) Hemoglobin 7.6 g/dL (12.0-15.5) 7.1 g/dL (12.0-15.5) Hematocrit 23.0 % (36.0-47.0) 22.7 % (36.0-47.0) Mean Corpuscular Volume 101 fL (79-100) Mean Corpuscular Hemoglobin 33 pg (25-35) Mean Corpuscular Hemoglobin Concent 33 g/dL (31-37) 31 g/dL (31-37) Red Cell Distribution Width 14.8 % (11.5-14.5) Platelet Count 132 x10^3/uL (140-400) Neutrophils (%) (Auto) 89 % (31-73) Lymphocytes (%) (Auto) 6 % (24-48) Monocytes (%) (Auto) 4 % (0-9) Eosinophils (%) (Auto) 0 % (0-3) Basophils (%) (Auto) 0 % (0-3) Neutrophils # (Auto) 11.8 x10^3/uL (1.8-7.7) Lymphocytes # (Auto) 0.8 x10^3/uL (1.0-4.8) Monocytes # (Auto) 0.6 x10^3/uL (0.0-1.1) Eosinophils # (Auto) 0.0 x10^3/uL (0.0-0.7) Basophils # (Auto) 0.0 x10^3/uL (0.0-0.2) Segmented Neutrophils % 83 % (35-66) Band Neutrophils % 2 % (0-9) Lymphocytes % 11 % (24-48) Monocytes % 4 % (0-10) Platelet Estimate Adequate (ADEQUATE) Anisocytosis Slight Schistocytes Occ Prothrombin Time 14.4 SEC (11.7-14.0) Prothromb Time International Ratio 1.2 (0.8-1.1) Activated Partial Thromboplast Time 26 SEC (24-38) Sodium Level 141 mmol/L (136-145) Potassium Level 3.6 mmol/L (3.5-5.1) Chloride Level 101 mmol/L (98-107) Carbon Dioxide Level 24 mmol/L (21-32) Anion Gap 16 (6-14) Blood Urea Nitrogen 60 mg/dL (7-20) Creatinine 1.6 mg/dL (0.6-1.0) Estimated GFR (Cockcroft-Gault) 31.1 BUN/Creatinine Ratio 38 (6-20) Glucose Level 186 mg/dL (70-99) Calcium Level 9.2 mg/dL (8.5-10.1) Total Bilirubin 0.4 mg/dL (0.2-1.0) Aspartate Amino Transf (AST/SGOT) 41 U/L (15-37) Alanine Aminotransferase (ALT/SGPT) 24 U/L (14-59) Alkaline Phosphatase 64 U/L (46-116) Troponin I Quantitative 0.318 ng/mL (0.000-0.055) 0.977 ng/mL (0.000-0.055) Total Protein 5.8 g/dL (6.4-8.2) Albumin 3.0 g/dL (3.4-5.0) Albumin/Globulin Ratio 1.1 (1.0-1.7) Lipase 195 U/L (73-393) Stool Occult Blood Positive (NEG) Arterial Blood pH 6.80 (7.35-7.45) Arterial Blood pCO2 at Patient Temp 68 mmHg (35-46) Arterial Blood pO2 at Patient Temp 52 mmHg (65-108) Arterial Blood HCO3 10 mmol/L (21-28) Arterial Blood Base Excess -25 mmol/L (-3-3) FiO2 Test 01/21/20 03:00 01/21/20 04:58 01/21/20 05:00 01/21/20 06:00 Lactic Acid Level 20.2 mmol/L (0.4-2.0) White Blood Count 10.1 x10^3/uL (4.0-11.0) Red Blood Count 2.82 x10^6/uL (3.50-5.40) Hemoglobin 9.1 g/dL (12.0-15.5) Hematocrit 29.7 % (36.0-47.0) Mean Corpuscular Volume 105 fL (79-100) Mean Corpuscular Hemoglobin 32 pg (25-35) Mean Corpuscular Hemoglobin Concent 31 g/dL (31-37) Red Cell Distribution Width 16.4 % (11.5-14.5) Platelet Count 85 x10^3/uL (140-400) Sodium Level 142 mmol/L (136-145) Potassium Level 4.7 mmol/L (3.5-5.1) Chloride Level 104 mmol/L (98-107) Carbon Dioxide Level 10 mmol/L (21-32) Anion Gap 28 (6-14) Blood Urea Nitrogen 66 mg/dL (7-20) Creatinine 1.9 mg/dL (0.6-1.0) Estimated GFR (Cockcroft-Gault) 25.5 BUN/Creatinine Ratio 35 (6-20) Glucose Level 23 mg/dL (70-99) Calcium Level 8.7 mg/dL (8.5-10.1) Magnesium Level 2.8 mg/dL (1.8-2.4) Total Bilirubin 0.9 mg/dL (0.2-1.0) Aspartate Amino Transf (AST/SGOT) 3378 U/L (15-37) Alanine Aminotransferase (ALT/SGPT) 2684 U/L (14-59) Alkaline Phosphatase 78 U/L (46-116) Lactate Dehydrogenase 3976 U/L (81-234) Total Protein 4.7 g/dL (6.4-8.2) Albumin 2.2 g/dL (3.4-5.0) Albumin/Globulin Ratio 0.9 (1.0-1.7) Troponin I Quantitative 1.665 ng/mL (0.000-0.055) Glucose (Fingerstick) 154 mg/dL (70-99) Test 01/21/20 08:38 Glucose (Fingerstick) 74 mg/dL (70-99) Images Images CT scan was done without contrast. No acute abdominal issues other than diverticulosis was noted but it is a limited examination. Assessment/Plan Assessment/Plan Acute presentation with abdominal pain and hypotension associated with significant lab abnormalities including transaminase elevation, severe lactic acid elevation, LDH elevation with a prior history of atherosclerotic disease and aortic stent placement are all suspicious for an acute ischemic bowel and hypovolemic shock. Her anemia is not this because of all of these hypovolemic changes and there is no evidence of recent active bleeding. Since admission she is deteriorated and required intubation and now is on pressor agents in the ICU. Plan: Supportive care with transfusion. No active bleeding so no indication for intervention with endoscopic evaluation at this time. Guarded prognosis due to her numerous medical issues, occluding hypovolemic shock, ischemic hepatopathy and probably ischemic bowel. FILIPE GIRALDO MD Jan 21, 2020 11:00
[2020-01-21 11:17] LABS: BASE EXCESS ABG -9 mmol/L (-3-3); HCO3 ABG 14 mmol/L (21-28); PO2 ABG 146 mmHg (65-108); SAT O2 ABG 99 % (92-99)
[2020-01-21 11:29] LABS: HEMATOCRIT 14.5 % (36.0-47.0); HEMOGLOBIN 4.5 g/dL (12.0-15.5)
[2020-01-21 11:46] LABS: PCO2 ABG 20 mmHg (35-46)
[2020-01-21 11:50] LABS: FIO2 ABG 40% VENT
--- NOTE | 2020-01-21 11:55 | NUR ---
NDN notified of cardiac at 1148. Not a tissue or eye donation.
--- NOTE | 2020-01-21 11:58 | PDOC5 ---
CODE REPORT CODE REPORT I was called to the ICU for a code blue activation at 0954 this morning. Patient was found pulseless when RT came to get a ABG. Patient reportedly a GI bleed with possible ischemic bowel. Upon arrival, patient was in asystole and had received epi x1. Morning labs were reviewed and patient was hypoglycemic and acidotic this mo rning. She was given bicarb x 2, and D50 x 2. At second pulse check, patient was in Vfib and was shocked x 1. She was given amiodarone and epinephrine. At third pulse check, patient was found to have a pulse. Labs and ABG ordered. Dr Costello the admitting physician was updated. Please see code sheet for further details CRISTOPHER MOHAN MD Jan 21, 2020 11:57
--- NOTE | 2020-01-21 13:41 | NUR ---
1148 patient . 1215 Family here to sign release papers. 1335 Patient taken to the [facility] via cart by charge nurse Obed.
[2020-01-21 18:29] LABS: FIO2 ABG 100
[2020-01-23 07:51] LABS: FIO2 ABG 24
--- NOTE | 2020-01-27 10:35 | DS ---
DATE OF DISCHARGE: 01/21/2020 DISCHARGE SUMMARY HOSPITAL COURSE: The patient is a 79-year-old female patient, a resident at [facility], who was admitted through the Emergency Room with a complaint of left lower abdominal pain, blood in the stool. Her symptoms started the day of admission. Denied any chest pain or shortness of breath. The history of GI bleed before and it was felt to be diverticular. She is not on any blood thinner and on arrival to the Emergency Room, she was slightly tachypneic, tachycardic; however, she was normotensive. Her initial lab work showed hemoglobin was 7.6, hematocrit 23. Her chemistry was 60, creatinine 1.6. She was admitted to the ICU and did receive 2 units of packed RBCs. Around 3:00 in the morning, she became unresponsive and her blood gases showed severe metabolic acidosis with a pH of 6.8, pCO2 of 68, bicarb only 10 and therefore, she was intubated and mechanically ventilated and was sedated by propofol, midazolam and fentanyl and because of hypotension, she was continued on epinephrine. Her lab work showed that she has mixed metabolic and respiratory acidosis with a pH of only 6.8. Her chemistry showed that she has severe lactic acidosis with lactic acid of 19.1. Her LDH was extremely high at 3976, most likely due to the fact that she has infarcted her bowel. Mik blue was called in and the patient was resuscitated. She received 1 round of epinephrine together with CPR and on check her spontaneous, she was also shocked once and given amiodarone, epinephrine. On the 3rd pulse check, she was found to have a pulse and basically I contacted her son who basically recommended the patient should be comfort care and no further aggressive treatment and the patient basically at 12:15 and the cause of is: 1. Cardiopulmonary arrest. 2. Acute hypoxic hypercapnic respiratory failure. 3. Severe metabolic acidosis, likely due to acute bowel ischemia and infarction. The patient also known to have chronic obstructive pulmonary disease. KATY GARCIA MD DR: DES/isabel JOB#: [id number] / [id number]
== END 2020-01-21 13:40 | disposition expired | DRG 377 ==
LOC: ER 15:23 → 1 WEST ICU 17:51
PROVIDERS: ADMIT Internal Medicine; ATTEND Internal Medicine
PROC: 30233N1 Transfusion of Nonautologous Red Blood Cells into Peripheral Vein, Percutaneous Approach (ICD-10-PCS; principal; 2020-01-21)
PROC: 5A1935Z Respiratory Ventilation, Less than 24 Consecutive Hours (ICD-10-PCS; 2020-01-21)
PROC: 0BH17EZ Insertion of Endotracheal Airway into Trachea, Via Natural or Artificial Opening (ICD-10-PCS; 2020-01-21)
PROC: 03HY32Z Insertion of Monitoring Device into Upper Artery, Percutaneous Approach (ICD-10-PCS; 2020-01-21)
PROC: 5A2204Z Restoration of Cardiac Rhythm, Single (ICD-10-PCS; 2020-01-21)
DX: K92.2 Gastrointestinal hemorrhage, unspecified (principal); K55.059 Acute (reversible) ischemia of intestine, part and extent unspecified; J96.21 Acute and chronic respiratory failure with hypoxia; K72.00 Acute and subacute hepatic failure without coma; I21.9 Acute myocardial infarction, unspecified; I50.32 Chronic diastolic (congestive) heart failure; N17.9 Acute kidney failure, unspecified; E87.2 Acidosis; M19.90 Unspecified osteoarthritis, unspecified site; K21.9 Gastro-esophageal reflux disease without esophagitis; E78.00 Pure hypercholesterolemia, unspecified; J44.9 Chronic obstructive pulmonary disease, unspecified; E78.5 Hyperlipidemia, unspecified; I73.9 Peripheral vascular disease, unspecified; I48.0 Paroxysmal atrial fibrillation; I25.10 Atherosclerotic heart disease of native coronary artery without angina pectoris; R57.1 Hypovolemic shock; D64.9 Anemia, unspecified; I11.0 Hypertensive heart disease with heart failure; F03.90 Unspecified dementia, unspecified severity, without behavioral disturbance, psychotic disturbance, mood disturbance, and anxiety; I49.01 Ventricular fibrillation; E16.2 Hypoglycemia, unspecified; M85.80 Other specified disorders of bone density and structure, unspecified site; E87.6 Hypokalemia; Z99.81 Dependence on supplemental oxygen; Z90.49 Acquired absence of other specified parts of digestive tract; Z90.710 Acquired absence of both cervix and uterus; Z86.79 Personal history of other diseases of the circulatory system; Z87.891 Personal history of nicotine dependence; Z82.49 Family history of ischemic heart disease and other diseases of the circulatory system; I46.9 Cardiac arrest, cause unspecified
CPT/HCPCS: 36415; 36600; 71045; 74018; 74176; 80053; 82274; 82805; 82962; 83605; 83615; 83690; 83735; 84484; 85007; 85014; 85018; 85025; 85027; 85610; 85730; 86850; 86900; 86901; 86920; 93005; 94002; 96374; 96375; 99285; C9113; J0171; J0282; J2250; J2270; J2405; J3010; J3490; J7030; J7060; P9016; G0378; U0003-CS